=== PATIENT | female | born 1960 | race Caucasian/White ===

== ENCOUNTER → 2016-05-06 | Outpatient (CLI) | payer BC ==
[~2016-05-06] MED LIST: NAPR-1169 PO; PHEN-582 PO
--- NOTE | 2016-05-06 17:09 | MAMMOGRAPHY REPORT ---
BILATERAL DIGITAL SCREENING MAMMOGRAM TOMOSYNTHESIS WITH CAD: 05/06/2016 CLINICAL HISTORY: Baseline examination. TECHNIQUE: Breast tomosynthesis in addition to standard 2D mammography was performed. Current study was also evaluated with a Computer Aided Detection (CAD) system. COMPARISON: No prior exams were available for comparison. BREAST COMPOSITION: There are scattered areas of fibroglandular density in both breasts. FINDINGS: There is a 2.5 cm focal asymmetry seen within the left lower inner quadrant, with question able associated architectural distortion on the tomosynthesis images. Given no priors to document s tability, recommend spot compression tomosynthesis views and possible breast ultrasound for further evaluation. The remainder of both breasts are negative, without suspicious masses, calcifications, or areas of a rchitectural distortion noted. IMPRESSION: ACR BI-RADS CATEGORY 0: INCOMPLETE EVALUATION: NEED ADDITIONAL IMAGING EVALUATION Left breast focal asymmetry, for which additional imaging evaluation is recommended. The patient wi ll be called to schedule an appointment. Approximately 10% of breast cancers are not detected with mammography. A negative mammographic repor t should not delay biopsy if a clinically suggestive mass is present. Anabell Ornelas M.D. /:05/06/2016 16:06:19 Steamer Operator: Courtney BUTLER)([place]), [facility] letter sent: Addl Imaging 0 BI-RADS Code: ACR BI-RADS Category 0: Incomplete Evaluation: Need Additional Imaging Evaluation
== END | disposition home or self-care (01) ==
LOC: C.MAMM 08:59
PROVIDERS: ATTEND Obstetrics & Gynecology
DX: Z12.31 Encounter for screening mammogram for malignant neoplasm of breast (principal); N64.89 Other specified disorders of breast

== ENCOUNTER → 2016-05-13 | Outpatient (CLI) | payer BC ==
--- NOTE | 2016-05-13 12:46 | MAMMOGRAPHY REPORT ---
ULTRASOUND OF LEFT BREAST: 05/13/2016 CLINICAL HISTORY: 56-year-old woman called back from screening mammography for a 2.7 cm focal asymme try in the lower inner quadrant of the left breast. Patient has no prior available mammograms. COMPARISON: Screening mammogram performed 05/06/2016. FINDINGS: Real-time high-resolution sonographic evaluation was performed throughout the lower inner quadrant of the left breast. In the 8:00 axis, 4 cm from the nipple, there is a focal area of dilat ed ducts filled with anechoic fluid. There is dense echogenic tissue surrounding this abnormal vivar le of ducts. This lesion measures approximately 23.5 x 11.4 x 18.6 mm and correlates well with the focal mammographic asymmetry. This is indeterminate and definitive characterization with ultrasound guided vacuum assisted core biopsy is recommended to exclude the possibility of an infiltrating pro cess, given that dilated ducts are only seen focally in this one location. IMPRESSION: ACR BI-RADS CATEGORY 4B: INTERMEDIATE SUSPICION FOR MALIGNANCY - FOLLOW-UP RECOMMENDED 1. Ultrasound guided vacuum assisted core needle biopsy is recommended for a 2.4 cm island of dense tissue surrounding focally dilated tangle of milk ducts in the 8:00 left breast, 4 cm from the nipp le, which correlates with the focal mammographic asymmetry. These results and recommendations were discussed with the patient at the time of the exam. She tent atively scheduled the biopsy prior to leaving our department. Gaye Musa M.D. ay/:05/13/2016 10:08:06 Latin Professor: Dr. Gaye Musa, [facility] letter sent: Abnormal 4/5 BI-RADS Code: ACR BI-RADS Category 4B: Intermediate Suspicion For Malignancy
== END | disposition home or self-care (01) ==
LOC: C.MAMM 08:54
PROVIDERS: ATTEND Obstetrics & Gynecology
DX: R92.8 Other abnormal and inconclusive findings on diagnostic imaging of breast (principal)

== ENCOUNTER → 2016-05-21 | Outpatient (CLI) | payer BC ==
--- NOTE | 2016-05-21 14:24 | Discharge Instructions ---
Discharge Instructions Procedure Procedure Date: May 21, 2016. Reason for visit: Left breast asymmetry Discharge Discharge Date: May 21, 2016. Discharge Diagnosis: post left breast ultrasound guided core biopsy Instructions Activity Recommendations: Additional Limitations (see below) Return to School/Work: no limitations Recommended Home Diet: No Limitations Provider Instructions: ACTIVITY RECOMMENDATIONS: * No lifting, pushing, pulling or exercising the affected side for three days. RETURN TO SCHOOL/WORK: * You may return to work/school after the procedure, but do not perform any strenuous activities for 24 to 48 hours. MEDICATIONS: * Tylenol (two 325 mg) every four to six hours if needed for mild pain (if not allergic to Tylenol). DIET: * Resume previous diet. SPECIAL CARE INSTRUCTIONS: * Keep biopsy site dry for 24 hours. May shower after 24 hours, but do not soak (bathe) incision. * May remove Tegaderm (plastic patch) tomorrow AFTER showering. * Leave the steri-strips on for one week. Allow the steri-strips to fall off by themselves. If not off after one week, you may remove them. You may place a Bandaid crosswise over the strips, if desired. * Apply ice 10 minutes on and 10 minutes off as needed. * Wear a bra at bedtime to sleep more comfortably for 2-3 days. * Your referring physician should have the results after approximately 5 to 7 business days. * Call for unusual bleeding, fever, drainage, etc or if you have any questions call [phone] during normal business hours or after hours call Dr Musa, . FOLLOW UP VISIT: Follow-up with Referring Physician as scheduled. Allergies Coded Allergies: Penicillins (Verified Allergy, Unknown, hives, 02/10/15) Wilfred Cornejo Recommendations: Call your doctor if: * Temperature above 101 degrees * Pain not relieved by pain medicine ordered * There is increased drainage or redness from any incision * You have any unanswered questions or concerns. Your Doctors Instructions noted above were prepared by provider Gaye Musa. Patient Signature Section: Patient Instructions Signature Page Courtney Justin Patient (or Guardian) Signature/Date: I have read and understand the instructions given to me by my caregivers. Caregiver/RN/Doctor Signature/Date: The above-named patient and/or guardian has received patient instructions on this date. + Original Patient Signature Page (only) stays with chart. Please make copy for patient.
--- NOTE | 2016-05-21 15:32 | MAMMOGRAPHY REPORT ---
UNILATERAL LEFT DIGITAL DIAGNOSTIC MAMMOGRAM TOMOSYNTHESIS: 05/21/2016 CLINICAL HISTORY: Status post left breast ultrasound guided vacuum assisted core biopsy of a focal a symmetry with possible associated distortion in the 8:00 middle one third of the breast. Please refer to the report from left breast ultrasound guided core biopsy performed at the same time for full detail. IMPRESSION: POST PROCEDURE IMAGING FOR MARKER PLACEMENT Please refer to the report from left breast ultrasound guided core biopsy performed at the same time for full detail. Approximately 10% of breast cancers are not detected with mammography. A negative mammographic repor t should not delay biopsy if a clinically suggestive mass is present. Gaye Musa M.D. ay/:05/21/2016 14:29:28 Publicity Person: Paola Samuel, [facility] BI-RADS Code: Post Procedure Imaging For Marker Placement
--- NOTE | 2016-05-21 16:42 | MAMMOGRAPHY REPORT ---
THIS REPORT HAS BEEN AMENDED. ULTRASOUND GUIDED BIOPSY LEFT BREAST: 05/21/2016 CLINICAL HISTORY: Focal asymmetry in the lower inner middle one third of the left breast. Patient p resents for ultrasound-guided core biopsy. COMPARISON: Comparison is made to exams dated: 05/13/2016 ultrasound and 05/06/2016 mammogram - [facility]. PATIENT CONSENT: The procedure, risks and benefits were discussed with the patient and informed writ ten consent was obtained. Specific risks to this procedure include: bleeding, infection, puncture of adjacent structure, nontarget biopsy, sampling error, metal allergy and medication reaction. PROCEDURE DESCRIPTION: A time out was performed and the left breast was agreed as the site of biopsy . The skin was prepped and draped in the usual sterile fashion. The dense glandular tissue with inte rspersed tangled hypoechoic ducts in the 8:00 left breast was identified and chosen as the target fo r biopsy. Subcutaneous and intraparenchymal 1% buffered lidocaine, with and without epinephrine, was administered as local anesthesia. A skin incision was made. Through the incision, 4 samples were t aken with a 12 gauge Celero biopsy device. A metallic marker was placed at the biopsy site. Hemostas is was achieved after manual compression. The patient tolerated the procedure well and there was no immediate complication. The samples were sent to the pathology department in an appropriately label ed container. Postprocedure left CC and ML tomosynthesis images and 2-D digital images were obtained. There is a new ribbon-shaped metallic biopsy marker and no significant hematoma within the focal asymmetry in q uestion. Air bubbles from the procedure are also seen within the asymmetry on the CC view. No sign ificant postbiopsy hematoma is identified. This confirms mammographicsonographic correlation. IMPRESSION: ULTRASOUND GUIDED BIOPSY Status post ultrasound-guided core biopsy of a focal asymmetry in the 8:00 left breast, with metalli c biopsy marker placed at the site. The patient will receive notification of the biopsy results from her referring physician. Gaye Musa M.D. ay/:05/21/2016 15:55:44 Ingredient Specialist: Paola Samuel, [facility] AMENDMENT: 06/03/2016 Gaye Musa M.D. Pathology results from the ultrasound-guided core biopsy of a focal asymmetry in the lower inner ifeanyi drant of the left breast yielded fibrocystic change with apocrine metaplasia, focal adenosis, and a papillary proliferation consistent with a papilloma. Carcinoma is not seen. It is unlikely that th e palpable identified at pathology can account for the asymmetry which measures approximately 2.5 cm mammographically. Nevertheless, given the pathologic finding of a papilloma, recommend surgical co nsultation for consideration of surgical excision. Pending decision for surgical excision, a short interval follow-up left mammogram including tomosynthesis images and possible repeat ultrasound is r ecommended to ensure stability in 6 months.
== END | disposition home or self-care (01) ==
LOC: C.MAMM 13:38
PROVIDERS: ATTEND Obstetrics & Gynecology
DX: N60.12 Diffuse cystic mastopathy of left breast (principal); N60.22 Fibroadenosis of left breast

== ENCOUNTER → 2016-07-16 | Outpatient (CLI) | payer BC ==
--- NOTE | 2016-07-16 16:04 | DIAGNOSTIC IMAGING REPORT ---
LEFT FOOT MIN 3 VIEWS ROUTINE CLINICAL HISTORY: Left foot pain COMPARISON: None. DISCUSSION: No acute fractures are visualized. There is mild spurring at the base of the fifth metatarsal. There are mild osteoarthritic changes the level of the first metatarsal phalangeal joint. There are no erosive changes. There are small calcaneal spurs. IMPRESSION: Minor degenerative change. No fractures identified. No evidence of erosive disease. Electronically signed by: Jay Collazo M.D. 07/16/2016 4:02 PM Dictated Date/Time: 07/16/2016 4:01 PM
== END | disposition home or self-care (01) ==
LOC: C.RAD1850 15:53
PROVIDERS: ATTEND Family Medicine
DX: M79.673 Pain in unspecified foot (principal)

== ENCOUNTER → 2016-08-25 | Outpatient (CLI) | payer BC ==
--- NOTE | 2016-08-25 12:02 | DIAGNOSTIC IMAGING REPORT ---
LEFT FOOT 3 VIEWS HISTORY: LEFT FOOT PAIN COMPARISON: Left foot 07/16/2016. FINDINGS: There is no fracture or dislocation. Mild soft tissue swelling within the first toe. No radiopaque foreign bodies. Mild degenerative changes are again noted. The Lisfranc joint is intact. No erosions identified. Small plantar and posterior calcaneal spurs. IMPRESSION: No fractures. Mild degenerative changes are again noted. Mild soft tissue swelling within the first toe persist. Electronically signed by: Josias Cook M.D. 08/25/2016 12:01 PM Dictated Date/Time: 08/25/2016 11:59 AM
== END | disposition home or self-care (01) ==
LOC: C.RDSM 11:31
PROVIDERS: ATTEND Family Medicine
DX: M79.672 Pain in left foot (principal); M54.5 Low back pain

== ENCOUNTER 2023-08-21 07:29 | Inpatient (IN) ==
--- NOTE | 2023-08-21 07:54 | Emergency Department Note ---
Impression & Plan Chest pain, Hypertension, ST elevation (STEMI) myocardial infarction ED Provider Note ED Provider Note NAME: GIUSEPPE BYRD AGE:63 SEX: Female : 1960 ARRIVES VIA: Private vehicle INFORMANT: Patient ED PROVIDER(s): Mariah Gonsales DO CHIEF COMPLAINT: Chest pain HPI: This is a 63-year-old female who presents emerged from due to concern for worsening episodes of chest pain since Wednesday. She states pain seem mostly with laying down and she thought initially it was reflux. She states she would try some Maalox which seemed to help some and provide temporary relief however pain always returned. She states pain also comes and goes throughout the day as well, although was not specifically tied to exertion. She states she does have a history of high blood pressure and had talked with her doctor recently about increasing her meds. She thought perhaps it was due to increased stress as she recently retired and got . She denies any recent fevers, chills, or URI symptoms. She states she does have a history of reflux although it is never been this bad. She does not take a daily PPI or H2 paxton. She states pain when it comes is central, she occasionally also feels it into the right shoulder and into the left lateral chest. No further radiation into the back, neck, or upper extremities. She states she does have accompanying nausea and fatigue, no overt dizziness or shortness of breath. PAST MEDICAL HISTORY:See Below PAST SURGICAL HISTORY:See Below FAMILY HISTORY:See Below SOCIAL HISTORY:See Below HOME MEDICATIONS:See Below ALLERGIES:See Below VITALS:See Below PHYSICAL EXAMINATION: GENERAL: alert, well appearing, well nourished, no distress, non-toxic EYE EXAM: normal conjunctiva, PERRL and EOM's grossly intact OROPHARYNX: no exudate, no erythema, lips, buccal mucosa, and tongue normal and mucous membranes are moist NECK: supple, no nuchal rigidity, no adenopathy, non-tender LUNGS: Clear to auscultation. Normal chest wall mechanics, no w/r/r HEART: no murmurs, S1 normal and S2 normal ABDOMEN: abdomen soft, non-tender, normo-active bowel sounds, no masses, no rebound or guarding. SKIN: no rashes, petechiae, orbruising UPPER EXTREMITIES: upper extremities are grossly normal. FROM, nml pulses b/l. LOWER EXTREMITIES: No pitting edema. FROM, nml pulses b/l. NEURO EXAM: Normal sensorium, cranial nerves II-XII grossly intact, normal speech, no facial droop,nogross weakness of arms, no gross weakness of legs. Gross sensation intact. No ataxia. Vital Signs: reviewed and remarkable Differential Diagnosis: acute coronary syndrome, pericarditis, pulmonary embolus, aortic dissection, pneumonia, pneumothorax, musculoskeletal pain, shingles, GERD, GI bleed, as well as others were considered MEDICAL DECISION MAKING: This is a 63 yo female who presents to the ER with concern for several days of intermittent chest pain. VS stable and patient afebrile. Labs drawn and sent, IV established, EKG and CXR performed and interpreted at bedside, and patient placed on telemetry. No pain during my initial exam. She was noted to be hypertensive and did not take her htn meds this am. She was given IV labetolol. She had recurrent pain and repeat EKG performed. Patient noted to have biphasic T waves and T wave inversions. In comparison to prior EKGs this was new. Labs revealed elevated troponin. I asked for message to be sent to admitting hospitalist team and [place] [facility]. Patient with recurrent episode and 3rd EKG showed ST elevation. Heart Alert activated. Aspirin and heparin ordered. Case discussed with Dr. Galeana. Case then discussion with hospitalist and general cards additionally. Brilinta added. Morphine and zofran added additionally. Dr. Galeana came to bedside. VS remained stable. Consultation(s): 0840: Discussed with Dr. Chong, [facility] hospitalist team, for additional evaluation and management. 0841: Discussed with Dr. Galeana, interventional cardiology. 0846: Discussed with Dr. Mcdowell, cardiology. ER Treatment Provided: See below 0840: Based on changes now evident on third EKG, heart alert called. Diagnostics Interpreted By Me: -ECG: Normal sinus at 96, normal axis, normal intervals, appearance of biphasic T waves noted in V2 and V3 with inverted T waves noted V4 through V6,, inferior T waves appear flattened and slightly inverted also; compared to EKG from 2019; EKG #2 unchanged, EKG #[address] elevation noted anteriorly -Cardiac Monitoring: An order was placed for continuous cardiac monitoring. The monitor shows a rate of 97 with normal sinus rhythm. -Laboratory studies: As stated above and show below. -Imaging studies: X-ray Chest: A single view study of the chest was reviewed and was negative for cardiomegaly, focal infiltrate, effusion, pulmonary edema, or wide mediastinum. Triage Nursing Note Reviewed Prior/Outside Records Reviewed Critical Care: Critical care of 44 min performed to assess and manage high likelihood of life- threatening ACS, involving labs and imaging performed with assessment to evaluate chest pain diagnosis with frequent reassessment. This time includes bedside time, treatment discussions with patient/family/consultants, documentation time and excludes procedure time. Past Med/Surg History Medical History (Updated 08/21/23 @ 11:50 by Josias Dinh PA-C) History of high blood pressure RECENTLY BEEN GOOD, SOMETIMES MELOXICAM WILL DRIVE IT UP PER PT Rapid heart beat METOPROLOL FOR Migraines Arthritis Surgical History History of breast surgery LEFT/HAD BLOCKAGE IN DUCT - MARKER PRESENT H/O dilation and curettage S/P tubal ligation HX S/P tonsillectomy HX S/P laparoscopic procedure HX sling operation for stress incontinence Family History Mother Alzheimer disease Father Parkinson disease Social History Smoking Status: Never smoker Second Hand Exposure: No; Do You Dip or Chew Tobacco: No; Hx Alcohol Use: No Hx Substance Use: No Preferred Language: Uzbek Communication Ability: Effective Rail 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 Beliefs That Will Affect Care: None Current Living Situation: Spouse Other Information That Helps Us Care for You: No Feels Safe at Home: Yes Safety Concerns: Feels Safe At This Time Assistive Devices: Glasses Allergies Allergies Allergy/AdvReac Type Severity Reaction Status Date / Time naproxen Allergy Unknown Hives Verified 01/08/23 10:31 Penicillins Allergy Unknown hives Verified 01/08/23 10:31 sulindac [From Clinoril] Allergy Unknown Hives Verified 01/08/23 10:31 Home Meds Home Medications Medication Instructions Recorded Confirmed diclofenac sodium 1 % topical gel 2 g topical UD PRN Pain 07/11/20 08/21/23 metoprolol succinate 25 mg 25 mg PO QAM 07/11/20 08/21/23 tablet,extended release 24 hr meloxicam 15 mg tablet 15 mg PO DAILY 01/08/23 08/21/23 valsartan 80 mg tablet 160 mg PO DAILY 01/08/23 08/21/23 Previous Rx's Medication Instructions Recorded tramadol 50 mg tablet 50 - 100 mg (1 - 2 x 50 mg) PO Q6H 07/18/22 PRN pain #15 tabs Results & Data (ED) Vital Signs Vital Signs - 24 hr 08/21/23 07:29 08/21/23 07:29 08/21/23 07:31 Temperature 36.6 C Temperature Source Temporal Artery Scan Pulse Rate 95 H Pulse Rate [Apical] 89 Respiratory Rate 18 20 Respiratory Effort / Characteristics Non-Labored Respiratory Depth Normal Blood Pressure 191/121 H Blood Pressure [Left Arm] 179/114 H Blood Pressure Mean 144 Blood Pressure Mean [Left Arm] 135 Pulse Oximetry 98 96 Oxygen Delivery Method Room Air Room Air Room Air Sepsis Recent Fever Within 48 Hours No Sepsis New/Unexplained Change in Mental Status No Sepsis Action Taken by Nursing No Action Required 08/21/23 08:06 08/21/23 08:10 08/21/23 08:22 Temperature Temperature Source Pulse Rate 84 85 Pulse Rate [Apical] 78 Respiratory Rate 18 Respiratory Effort / Characteristics Respiratory Depth Blood Pressure 162/108 H Blood Pressure [Left Arm] 159/109 H Blood Pressure Mean Blood Pressure Mean [Left Arm] 125 Pulse Oximetry 96 Oxygen Delivery Method Sepsis Recent Fever Within 48 Hours Sepsis New/Unexplained Change in Mental Status Sepsis Action Taken by Nursing 08/21/23 08:27 Temperature Temperature Source Pulse Rate 92 H Pulse Rate [Apical] Respiratory Rate Respiratory Effort / Characteristics Respiratory Depth Blood Pressure 159/109 H Blood Pressure [Left Arm] Blood Pressure Mean Blood Pressure Mean [Left Arm] Pulse Oximetry Oxygen Delivery Method Sepsis Recent Fever Within 48 Hours Sepsis New/Unexplained Change in Mental Status Sepsis Action Taken by Nursing Laboratory Data 08/21/23 07:44 08/21/23 07:44 Lab Results 08/21/23 Range/Units 07:44 WBC 7.63 (4.8-10.8) K/ul RBC 5.50 H (4.20-5.40) M/uL Hgb 16.5 H (12.0-16.0) g/dl Hct 49.5 H (37.0-47.0) % MCV 90.0 (80.0-100.0) fL MCH 30.0 (25.0-34.0) pg MCHC 33.3 (32.0-36.0) g/dL RDW Std Deviation 42.1 (36.4-46.3) fL RDW Coeff of Rossy 12.8 (11.5-14.5) % Plt Count 241 (130-400) K/uL MPV 9.9 (9.4-12.4) fL Immature Gran % (Auto) 0.3 % Neut % (Auto) 69.5 % Lymph % (Auto) 21.4 % Jerauld % (Auto) 6.6 % Eos % (Auto) 1.7 % Baso % (Auto) 0.5 % Neut # (Auto) 5.31 (1.40-6.50) K/uL Lymph # (Auto) 1.63 (1.20-3.40) K/uL Jerauld # (Auto) 0.50 (0.11-0.59) K/uL Eos # (Auto) 0.13 (0.00-0.50) K/uL Baso # (Auto) 0.04 (0.00-0.20) K/uL Immature Gran # (Auto) 0.02 (0.01-0.20) K/uL PT 10.4 (9.0-12.0) Seconds INR 1.0 (0.9-1.1) Sodium 140 (136-145) mmol/L Potassium 3.9 (3.5-5.1) mmol/L Chloride 104 (98-107) mmol/L Carbon Dioxide 27 (21-32) mmol/L Anion Gap 9 (3-11) BUN 23 (6-23) mg/dl Creatinine 0.77 (0.6-1.2) mg/dl Est Cr Clr Drug Dosing 84.5 ml/min Est GFR ( Amer) 93.9 ml/min Est GFR (Non-Af Amer) 81.0 ml/min BUN/Creatinine Ratio 29.9 H (10-20) Glucose 120 H (70-99(Fasting)) mg/dl Calcium 9.4 (8.6-10.3) mg/dl Magnesium 2.1 (1.7-2.4) mg/dl Total Bilirubin 0.7 (0.2-1.0) mg/dl AST 14 (13-39) U/L ALT 16 (7-52) U/L Alkaline Phosphatase 79 (34-104) U/L Troponin I High Sens 170.2 H* (0-14) pg/ml B-Natriuretic Peptide 213 H (0-100) pg/ml Total Protein 7.2 (6.0-8.3) gm/dl Albumin 4.2 (3.4-5.0) gm/dl Globulin 3.0 (2.5-4.0) gm/dl Albumin/Globulin Ratio 1.4 (0.9-2) Lipase 13 (11-82) U/L TSH 5.388 H (0.300-4.500) uIu/ml Free T4 0.77 (0.61-1.60) ng/dl Administered Medications Metoprolol Tartrate (Metoprolol Tartrate 25 Mg Tab) 12.5 mg PO BID JAC Stop: 09/20/23 10:14 Last Admin: 08/21/23 13:45 Dose: 12.5 mg Documented By: TRUDY Discontinued Medications Aspirin (Aspirin Chew 324 Mg) Confirm Administered Dose 324 mg .ROUTE .STK-MED ONE Stop: 08/21/23 08:40 Last Admin: 08/21/23 08:41 Dose: 324 mg Documented By: LASHAY Aspirin (Aspirin 81 Mg Chew) 324 mg PO NOW STA Stop: 08/21/23 08:41 Last Admin: 08/21/23 08:45 Dose: 324 mg Documented By: LASHAY Fentanyl Citrate (Fentanyl Citrate Pf 100 Mcg/2 Ml Vial) Confirm Administered Dose 100 mcg .ROUTE .STK-MED ONE Stop: 08/21/23 09:03 Last Increment: 08/21/23 09:42 Dose: 25 mcg Documented By: SHO Heparin Sodium (Porcine) (Heparin Sod (Porcine) 1000 Unit/Ml) Confirm Administered Dose 1,000 units .ROUTE .STK-MED ONE Stop: 08/21/23 08:41 Last Admin: 08/21/23 08:46 Dose: Not Given Documented By: LASHAY Heparin Sodium (Porcine) (Heparin Sod (Porcine) 1000 Unit/Ml) 5,000 units IV NOW ONE Stop: 08/21/23 08:41 Last Admin: 08/21/23 08:42 Dose: 5,000 units Documented By: LASHAY Co-signed By: TRUONG Heparin Sodium (Porcine) (Heparin (Porcine) 1000 Unit/Ml 10 Ml (Plate Finisher Use Only)) Confirm Administered Dose 10,000 units .ROUTE .ST-MED ONE Stop: 08/21/23 09:03 Last Admin: 08/21/23 09:42 Dose: 5,000 units Documented By: SHO Heparin Sodium/Sodium Chloride (Heparin In Nss Infusion 1000 Unit/500 Ml (2 U/Ml) Bag) Confirm Administered Dose 3,000 units IV .ST-MED ONE Stop: 08/21/23 09:03 Last Admin: 08/21/23 10:51 Dose: Not Given Documented By: TRUDY Pantoprazole Sodium 40 mg/ (Syringe) 10 mls @ 5 mls/min IV NOW ONE Stop: 08/21/23 07:50 Last Admin: 08/21/23 08:07 Dose: 5 mls/min Documented By: LASHAY Sodium Chloride (Nss) 500 mls @ 125 mls/hr IV .Q4H JAC Stop: 09/20/23 07:59 Last Infusion: 08/21/23 15:36 Dose: Infused Documented By: Admin: 08/21/23 13:45 Dose: 125 mls/hr Documented By: Infusion: 08/21/23 12:24 Dose: Infused Documented By: Admin: 08/21/23 08:07 Dose: 125 mls/hr Documented By: LASHAY Ioversol (Optiray 350) Confirm Administered Dose 1 ml .ROUTE .ST-MED ONE Stop: 08/21/23 09:03 Last Admin: 08/21/23 09:44 Dose: 80 ml Documented By: DARCIE Labetalol HCl (Labetalol Hcl Iv 5 Mg/Ml 20ml) 5 mg IV NOW STA Stop: 08/21/23 07:59 Last Admin: 08/21/23 08:06 Dose: 5 mg Documented By: LASHAY Co-signed By: TRUONG Midazolam HCl (Midazolam Hcl 1 Mg/Ml 2ml Vial) Confirm Administered Dose 2 mg .ROUTE .ST-MED ONE Stop: 08/21/23 09:03 Last Increment: 08/21/23 09:43 Dose: 1 mg Documented By: SHO Morphine Sulfate (Morphine Sulfate 2 Mg/Ml Carp) 2 mg IV NOW STA Stop: 08/21/23 08:44 Last Admin: 08/21/23 08:47 Dose: 2 mg Documented By: LASHAY Nicardipine HCl (Nicardipine Hcl Inj 2.5 Mg/Ml 10 Ml Amp) Confirm Administered Dose 25 mg .ROUTE .[facility] ONE Stop: 08/21/23 09:03 Last Admin: 08/21/23 09:43 Dose: 25 mg Documented By: DARCIE Nitroglycerin/Dextrose (Nitroglycerin/D5w 100mcg/Ml 20ml Syr) Confirm Administered Dose 2,000 mcg .ROUTE .[facility] ONE Stop: 08/21/23 09:03 Last Admin: 08/21/23 09:44 Dose: 2,000 mcg Documented By: [id number] Ondansetron HCl (Ondansetron Inj 2 Mg/Ml 2 Ml Vial) 4 mg IV NOW STA Stop: 08/21/23 08:50 Last Admin: 08/21/23 08:51 Dose: 4 mg Documented By: LASHAY Ondansetron HCl (Ondansetron Inj 2 Mg/Ml 2 Ml Vial) Confirm Administered Dose 4 mg .ROUTE .[facility] ONE Stop: 08/21/23 08:52 Last Admin: 08/21/23 08:52 Dose: Not Given Documented By: LASHAY Pantoprazole Sodium (Pantoprazole 40 Mg Tab) 40 mg PO NOW STA Stop: 08/21/23 10:15 Last Admin: 08/21/23 13:45 Dose: 40 mg Documented By: TRUDY Ticagrelor (Ticagrelor 90 Mg Tab) 180 mg PO ONE ONE Stop: 08/21/23 08:44 Last Admin: 08/21/23 08:46 Dose: 180 mg Documented By: LASHAY Imaging Data Radiologist's Impression: Chest X-Ray 08/21/23 07:48 XR chest 1V portable CLINICAL HISTORY: cp TECHNIQUE: Single frontal radiograph of the chest was obtained. Comparison: Comparison is made to chest radiograph 06/02/2015 FINDINGS: No lines and tubes are seen. The cardiomediastinal silhouette is normal. The lungs are clear. No evidence of pleural effusion or pneumothorax. IMPRESSION: No acute chest disease. ACT 112: Negative or not required by law. Electronically signed by: Chong Eagle M.D. 08/21/2023 8:08 AM Discharge Plan Visit Data Chief Complaint: Cardiac Assessment Stated Complaint: ACID REFLUX,CHEST HEAVY ED Provider: Mariah Gonsales Discharge Problem: Chest pain, Hypertension, ST elevation (STEMI) myocardial infarction Patient Disposition: Admitted As Inpatient Discharge Instructions Interventions: ED Discharge Assessment Last Done: 08/21/23 09:13
[2023-08-21] MEDS: LABETALOL HCL IV 5 MG/ML 20ML IV STA (08:06)
[2023-08-21] MEDS: PANTOprazole 40 MG in SYRINGE 0 ML IV ONE (08:07)
[2023-08-21] MEDS: SODIUM CHLORIDE 0.9% 500 ML IV SCH (08:07)
--- NOTE | 2023-08-21 08:09 | XRay Report ---
XR chest 1V portable CLINICAL HISTORY: cp TECHNIQUE: Single frontal radiograph of the chest was obtained. Comparison: Comparison is made to chest radiograph 06/02/2015 FINDINGS: No lines and tubes are seen. The cardiomediastinal silhouette is normal. The lungs are clear. No evid ence of pleural effusion or pneumothorax. IMPRESSION: No acute chest disease. ACT 112: Negative or not required by law. Electronically signed by: Chong Eagle M.D. 08/21/2023 8:08 AM
[2023-08-21 08:12] LABS: Albumin Globulin Ratio 1.4 (0.9-2); Albumin Level 4.2 gm/dl (3.4-5.0); BUN Creatinine Ratio 29.9 (10-20); Bilirubin,Total 0.7 mg/dl (0.2-1.0); Calcium 9.4 mg/dl (8.6-10.3); Creatinine Clr Calc Pharmacy 84.5 ml/min; Est GFR (African American) 93.9 ml/min; Magnesium 2.1 mg/dl (1.7-2.4); Potassium 3.9 mmol/L (3.5-5.1); Total Protein 7.2 gm/dl (6.0-8.3)
[2023-08-21 08:13] LABS: Basophils # (auto) 0.04 K/uL (0.00-0.20); Basophils % (auto) 0.5 %; Eosinophils # (auto) 0.13 K/uL (0.00-0.50); Eosinophils % (auto) 1.7 %; Hematocrit (blood only) 49.5 % (37.0-47.0); Hemoglobin 16.5 g/dl (12.0-16.0); Immature Granulocytes # (auto) 0.02 K/uL (0.01-0.20); Immature Granulocytes % (auto) 0.3 %; Lymphocytes # (auto) 1.63 K/uL (1.20-3.40); Lymphocytes % (auto) 21.4 %; Mean Corpuscular Hgb Conc 33.3 g/dL (32.0-36.0); Mean Platelet Volume 9.9 fL (9.4-12.4); Monocytes % (auto) 6.6 %; Neutrophils # (auto) 5.31 K/uL (1.40-6.50); Neutrophils % (auto) 69.5 %; Platelet Count 241 K/uL (130-400); RDW Coefficient of Variation 12.8 % (11.5-14.5); RDW Standard Deviation 42.1 fL (36.4-46.3); White Blood Count 7.63 K/ul (4.8-10.8)
[2023-08-21 08:18] LABS: Prothrombin Time 10.4 Seconds (9.0-12.0)
[2023-08-21 08:23] LABS: Troponin I High Sensitivity 170.2 pg/ml (0-14)
[2023-08-21 08:28] LABS: Thyroid Stimulating Hormone 5.388 uIu/ml (0.300-4.500)
[2023-08-21] MEDS: ASPIRIN CHEW 324 MG ONE (08:41)
[2023-08-21] MEDS: HEPARIN SOD (PORCINE) 1000 UNIT/ML IV ONE (08:42)
[2023-08-21] MEDS: ASPIRIN 81 MG CHEW PO STA (08:45)
[2023-08-21] MEDS: HEPARIN SOD (PORCINE) 1000 UNIT/ML ONE (08:46)
[2023-08-21] MEDS: TICAGRELOR 90 MG TAB PO ONE (08:46)
[2023-08-21] MEDS: MoRPHine SULFATE 2 MG/ML CARP IV STA (08:47)
[2023-08-21] MEDS: ONDANSETRON INJ 2 MG/ML 2 ML VIAL IV STA (08:51)
[2023-08-21] MEDS: ONDANSETRON INJ 2 MG/ML 2 ML VIAL ONE (08:52)
--- NOTE | 2023-08-21 09:02 | Pre Anesthesia Assessment ---
Date of Service August 21, 2023 Pre Sedation Assessment Vital Signs Temp Pulse Pulse Resp BP BP Pulse Ox 08/21/23 08:27 92 H 159/109 H 08/21/23 08:22 78 18 159/109 H 96 08/21/23 08:10 85 08/21/23 08:06 84 162/108 H 08/21/23 07:31 97.9 F 95 H 20 191/121 H 96 08/21/23 07:29 89 18 179/114 H 98 08/21/23 07:29 O2 Del Method 08/21/23 08:27 08/21/23 08:22 08/21/23 08:10 08/21/23 08:06 08/21/23 07:31 Room Air 08/21/23 07:29 Room Air 08/21/23 07:29 Room Air Cardiovascular + regular rate Respiratory + respiratory effort normal Pre-Sedation Airway Assessment Smoking Status: Never smoker Hx Sleep Apnea: No Hx Difficult Intubation: No Short, Thick Neck: No Thyromental Distance: < 3.5 Finger Breadths Oral Cavity: + WNL Mallampati Class: III ASA: ASA3 Procedure Planning Contraindications for Sedation: none Current Medications Reviewed: Yes Notes The planned sedation has been discussed with the patient. Informed Consent was obtained. I have identified the patient, determined the appropriateness of sedation and have assessed the patient immediately prior to the procedure. All medicine(s) and interventions are by my order.
[2023-08-21 09:03] LABS: T4 Free Thyroxine 0.77 ng/dl (0.61-1.60)
--- NOTE | 2023-08-21 09:10 | Cardiology Consultation ---
Date of Consultation August 21, 2023 Assessment & Plan (1) ST elevation (STEMI) myocardial infarction: Presentation consistent with anterior STEMI and recommend proceeding with emergent cardiac catheterization and likely primary PCI. No apparent contraindications to procedure. Discussed risks, benefits, alternatives of procedure with patient and they are willing to proceed. Given IV heparin and ticagrelor 180 mg in the ED. Further recommendations pending findings of coronary angiography. History of Present Illness History of Present Illness Mrs. Soto is a very pleasant 63-year-old woman here with acute chest pain and ECG concerning for acute TX. Patient seen emergently in the ED after heart alert activated after serial ECGs showed new evolving anterior ST elevations (most notable ECG 8:38). Past cardiac history remarkable for hypertension and palpitations thought secondary to SVT. Followed by Dr. Laboy for cardiac care. Has been having stuttering chest pain for last 3 days, thought initially reflux. Episodes worse this morning, prolonged and associated with nausea. No prior similar symptoms in the past. In ED hypertensive with stuttering pain. HsTrop 170. Received labetalol, heparin, Ticagrelor. Family history: No premature CAD Social History: Non-smoker. Retired. Previously worked at [employer] in [employer]. . Allergies Allergy/AdvReac Type Severity Reaction Status Date / Time naproxen Allergy Unknown Hives Verified 01/08/23 10:31 Penicillins Allergy Unknown hives Verified 01/08/23 10:31 sulindac [From Clinoril] Allergy Unknown Hives Verified 01/08/23 10:31 Home Medications Medication Instructions Recorded Confirmed Type diclofenac sodium 1 % topical gel 2 g topical UD PRN Pain 07/11/20 08/21/23 History metoprolol succinate 25 mg 25 mg PO QAM 07/11/20 08/21/23 History tablet,extended release 24 hr tramadol 50 mg tablet 50 - 100 mg (1 - 2 x 50 mg) PO Q6H 07/18/22 08/21/23 Rx PRN pain #15 tabs meloxicam 15 mg tablet 15 mg PO DAILY 01/08/23 08/21/23 History valsartan 80 mg tablet 160 mg PO DAILY 01/08/23 08/21/23 History Patient History Medical History History of high blood pressure RECENTLY BEEN GOOD, SOMETIMES MELOXICAM WILL DRIVE IT UP PER PT Rapid heart beat METOPROLOL FOR Migraines Arthritis Surgical History History of breast surgery LEFT/HAD BLOCKAGE IN DUCT - MARKER PRESENT H/O dilation and curettage S/P tubal ligation HX S/P tonsillectomy HX S/P laparoscopic procedure HX sling operation for stress incontinence Family History Mother Alzheimer disease Father Parkinson disease Social History Smoking Status: Never smoker Do You Dip or Chew Tobacco: No; Hx Alcohol Use: No Preferred Language: Albanian Communication Ability: Effective 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 Vascular: 2+ radial Abdomen: Soft, nontender Extremities: Well perfused, no peripheral edema Neuro: Nonfocal Psych: Alert orient x3, normal affect and mood Results & Data Vital Signs (Past 12 Hours) Vital Signs Temp Pulse Pulse Resp BP BP Pulse Ox 08/21/23 08:27 92 H 159/109 H 08/21/23 08:22 78 18 159/109 H 96 08/21/23 08:10 85 08/21/23 08:06 84 162/108 H 08/21/23 07:31 97.9 F 95 H 20 191/121 H 96 08/21/23 07:29 89 18 179/114 H 98 08/21/23 07:29 O2 Del Method 08/21/23 08:27 08/21/23 08:22 08/21/23 08:10 08/21/23 08:06 08/21/23 07:31 Room Air 08/21/23 07:29 Room Air 08/21/23 07:29 Room Air PG Care Time/CCT Total # of Minutes Spent Total Time Spent with Patient: Total time spent is greater than 50% in coordination of care (as documented) at patient's floor/unit and/or counseling patient: Coding Level of Care Code 62463 ER DEPT VISIT MOD LVL [address] elevation (STEMI) myocardial infarction I21.3
[2023-08-21] MEDS: fentaNYL citrate PF 100 MCG/2 ML VIAL ONE (09:42)
[2023-08-21] MEDS: HEPARIN (PORCINE) 1000 UNIT/ML 10 ML (CATH LAB USE ONLY) ONE (09:42)
[2023-08-21] MEDS: MIDAZOLAM HCL 1 MG/ML 2ML VIAL ONE (09:43)
[2023-08-21] MEDS: niCARdipine HCL INJ 2.5 MG/ML 10 ML AMP ONE (09:43)
[2023-08-21] MEDS: OPTIRAY 350 ONE (09:44)
[2023-08-21] MEDS: NITROGLYCERIN/D5W 100MCG/ML 20ML SYR ONE (09:44)
[2023-08-21] MEDS ORDERED: ONDANSETRON INJ 2 MG/ML 2 ML VIAL IV PRN (10:15)
[2023-08-21] MEDS ORDERED: ACETAMINOPHEN 325 MG TAB PO PRN (10:15)
--- NOTE | 2023-08-21 10:16 | History & Physical Report ---
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 CBC, BMP, A1c, fasting lipid panel (2) Hypertension: Plan: Metoprolol succinate 25 mg p.o. --> Metoprolol tartrate 12.5 mg p.o. BID Continue valsartan (3) NSAID sensitivity: Plan: Patient does note allergy to NSAIDs (hives and occasional rash; no history of anaphylaxis or throat closure) Not currently taking meloxicam Discussed importance of taking aspirin and Brilinta daily Will start on Protonix 40 mg p.o. daily for now (4) Chest pain: Plan Disposition: Admit to PCU telemetry Full code Heart healthy diet VTE PPx: Heparin IV History of Present Illness Chief Complaint: Cardiac assessment Primary Care Provider: Joaquinchristiano Akira Valdez is a 63-year-old female with PMH of HTN, rotator cuff tear, and osteoarthritis. She presented for worsening chest pain on the evening of 08/19. Patient reports she first began to develop intermittent chest pain at rest on Thursday 08/17. She initially thought this was indigestion. The chest pain then came to ahead on the evening of 08/19, where it became a burning substernal pain/pressure that would last for minutes at a time, and recur every 5 minutes. Associated symptoms included dizziness and 1 episode of diarrhea this morning. Patient did not take any additional pain medications at this time. The pain radiated to the right shoulder. No radiation to left shoulder or back. Patient could not sleep. She eventually took her regular morning medications metoprolol and losartan. It should be noted that certain medications such as NSAIDs/naproxen do cause her to develop a rash/hives. She does not follow with an document processor. No history of airway closure or anaphylaxis. Note: It was stressed that this time that aspirin and Brilinta would be important moving forward. Patient notes that she no longer takes meloxicam or Celebrex. In regard to family history, she notes that her father had coronary artery disease involving stents and triple bypass. No personal history of [place]. Patient denies smoking, tobacco use, and recent alcohol use. Patient does follow with Dr. Laboy for cardiology. On ED arrival, patient was taken emergently to the [facility], for cardiac catheterization with Dr. Mega Galeana. After the procedure, patient reports that she is chest pain-free. She rates it 0 out of 10. She is mildly hypertensive at 145/85 at time of admission; SpO2 96% on RA; vitals otherwise stable. ROS post-cath: Patient denies fever, chills, nightsweats, dizziness, lightheadedness, CAMPBELL, changes in vision, chest pain or pressure, chest palpitations, SOB, abdominal pain, N/V, blood in the urine/stool, burning with urination, or pain/swelling/numbness/tingling in arms or legs. Allergies Allergy/AdvReac Type Severity Reaction Status Date / Time naproxen Allergy Unknown Hives Verified 01/08/23 10:31 Penicillins Allergy Unknown hives Verified 01/08/23 10:31 sulindac [From [facility]] Allergy Unknown Hives Verified 01/08/23 10:31 Home Medications Medication Instructions Recorded Confirmed Type diclofenac sodium 1 % topical gel 2 g topical UD PRN Pain 07/11/20 08/21/23 History metoprolol succinate 25 mg 25 mg PO QAM 07/11/20 08/21/23 History tablet,extended release 24 hr tramadol 50 mg tablet 50 - 100 mg (1 - 2 x 50 mg) PO Q6H 07/18/22 08/21/23 Rx PRN pain #15 tabs meloxicam 15 mg tablet 15 mg PO DAILY 01/08/23 08/21/23 History valsartan 80 mg tablet 160 mg PO DAILY 01/08/23 08/21/23 History Past Med/Surg History Medical History (Updated 08/21/23 @ 11:50 by Josias Dinh PA-C) History of high blood pressure RECENTLY BEEN GOOD, SOMETIMES MELOXICAM WILL DRIVE IT UP PER PT Rapid heart beat METOPROLOL FOR Migraines Arthritis Surgical History History of breast surgery LEFT/HAD BLOCKAGE IN DUCT - MARKER PRESENT H/O dilation and curettage S/P tubal ligation HX S/P tonsillectomy HX S/P laparoscopic procedure HX sling operation for stress incontinence Family History Mother Alzheimer disease Father Parkinson disease Social History Smoking Status: Never smoker Second Hand Exposure: No; Do You Dip or Chew Tobacco: No; Hx Alcohol Use: No Hx Substance Use: No Preferred Language: Luxembourger Communication Ability: Effective Rn Emergency Room Required: No Beliefs That Will Affect Care: None Current Living Situation: Spouse Other Information That Helps Us Care for You: No Feels Safe at Home: Yes Safety Concerns: Feels Safe At This Time Assistive Devices: Glasses Review of Systems Review of Systems: See HPI above Physical Exam Physical Exam: General: no acute distress; pleasant affect; non-toxic appearing; well-nou rished; cooperative; SpO2 96% on RA HEENT: normocephalic, atraumatic; no scleral icterus; PERRLA; vision and hearing grossly intact Neck: supple; trachea midline Skin: warm, dry without signs of tenting; no cyanosis; no rashes, bruising, lesions, or erythema noted Right arm: Radial band without signs of hematoma, erythema, or infection; right hand neurovascularly intact and patient demonstrates ability to flex wrist and wiggle fingers; she reports intact, symmetric sensation in both hands bilaterally CV: chest wall NTP; pain is not reproducible on palpation; RRR; S1/S2 normal; 2/6 systolic ejection murmur auscultated at the second ICS MCL; pulses intact and symmetric at radial, DP, and PT Lungs: no acute respiratory distress; symmetrical chest wall expansion; clear breath sounds across all lung shea w/o adventitious sounds; no wheezing ABD: Soft, NTP; BS present; no rebound/guarding; no distention MSK: no tics or fasciculations; no edema noted in the LEs b/l, nonerythematous Neuro: A&Ox3; normal mood and affect; fluent speech; no focal deficits; sensation grossly intact in the LEs b/l Results & Data Results & Data Vital Signs (Past 12 Hours) Vital Signs Temp Pulse Pulse Resp BP BP Pulse Ox 08/21/23 08:27 92 H 159/109 H 08/21/23 08:22 78 18 159/109 H 96 08/21/23 08:10 85 08/21/23 08:06 84 162/108 H 08/21/23 07:31 36.6 C 95 H 20 191/121 H 96 08/21/23 07:29 89 18 179/114 H 98 08/21/23 07:29 O2 Del Method 08/21/23 08:27 08/21/23 08:22 08/21/23 08:10 08/21/23 08:06 08/21/23 07:31 Room Air 08/21/23 07:29 Room Air 08/21/23 07:29 Room Air Laboratory Results Abnormal lab results 08/21/23 08/21/23 Range/Units 07:44 09:39 RBC 5.50 H (4.20-5.40) M/uL Hgb 16.5 H (12.0-16.0) g/dl Hct 49.5 H (37.0-47.0) % Activ Coag Time Kaolin 266 H (94-140) SECONDS BUN/Creatinine Ratio 29.9 H (10-20) Glucose 120 H (70-99(Fasting)) mg/dl Troponin I High Sens 170.2 H* (0-14) pg/ml B-Natriuretic Peptide 213 H (0-100) pg/ml TSH 5.388 H (0.300-4.500) uIu/ml Diagnostic Findings Chest X-Ray 08/21/23 07:48 XR chest 1V portable CLINICAL HISTORY: cp TECHNIQUE: Single frontal radiograph of the chest was obtained. Comparison: Comparison is made to chest radiograph 06/02/2015 FINDINGS: No lines and tubes are seen. The cardiomediastinal silhouette is normal. The lungs are clear. No evidence of pleural effusion or pneumothorax. IMPRESSION: No acute chest disease. ACT 112: Negative or not required by law. Electronically signed by: Chong Eagle M.D. 08/21/2023 8:08 AM ECG Additional Comments: ECG revealed NSR at 80 bpm on arrival Anterolateral lateral T wave inversions, which could indicate ischemia None prior on most recent EKG on 08/16/2020 Repeat ECG one hour later revealed ST elevation in anterior leads consistent with anterior infarct; 90 bpm; QTc 477 Code Status & VTE Plan Code Status Full code (discussed with patient at bedside) VTE Prophylaxis Plan VTE Prophylaxis will be ordered: Yes Supervising Physician Co-Signing Physician Notes Patient seen and examined, chart reviewed, case discussed with Josias Dinh PA-C and I agree with the assessment and plan as above except as otherwise noted [] [] Labs and images reviewed Aydee is a 63-year-old female with past medical history of osteoarthritis, SVT, hypertension, increased intraocular pressure who takes meloxicam daily, metoprolol, and valsartan prior to admission who has had intermittent chest pain for the last 3 days. Patient thought this was related to GERD and was worse positionally initially was not worsened on exertion however on day of presentation pain had increased in intensity, was with radiation into the left chest and right shoulder was associated with some nausea and caused her to present to the ER for evaluation. Initial troponin was elevated at 170, BNP elevated to 13, EKG showed territorial T wave inversions across the anterior/lateral leads which were not present on baseline EKG 08/16/2020. Serial EKG showed evolving STEMI and the development of territorial ST elevations in the anterior leads. Patient was taken emergently to the cardiac [facility]. She was loaded with heparin/Brilinta while in the ER. she was found to have a near complete LAD occlusion and received 1 stent to her LAD. STEMI Near total occlusion of LAD s/p 1 stent to the LAD Continue DAPT aspirin/Brilinta, atorvastatin, valsartan, and metoprolol with up titration as tolerated Troponin trended to peak, echo pending Interventional cardiology following, appreciate care and recommendations [Access site] [TR band] [vascular] [Post procedure chest pain] Medical comorbidities: Arthritis. Foot and ankle changes suspect osteoarthritis, has followed with rheumatology however is not felt to have inflammatory/rheumatoid arthritis. Recommended continued follow-up with podiatry. Hypertension Low-salt diet Continue beta-paxton/ARB. Received labetalol 5 mg x 1 for hypertension Repeat pressure [] [] Migraines - [] Prolonged QT Continue monitoring on telemetry History of GERD Pepcid as needed. Recommend avoiding NSAIDs. Renal function normal PG Care Time/CCT Total # of Minutes Spent Total Time Spent with Patient: Total time spent is greater than 50% in coordination of care (as documented) at patient's floor/unit and/or counseling patient: [place] [address] INT INP/OBS CARE MIN Patient Type New History Comprehensive Exam Comprehensive Medical Decision Making High Complexity Diagnoses ST elevation (STEMI) myocardial infarction I21.3 Hypertension I10 NSAID sensitivity Z88.6 Chest pain R07.9
--- NOTE | 2023-08-21 10:17 | Post Anesthesia Assessment ---
Date of Service August 21, 2023 Post Sedation Assessment Vital Signs Temp Pulse Pulse Resp BP BP Pulse Ox 08/21/23 08:27 92 H 159/109 H 08/21/23 08:22 78 18 159/109 H 96 08/21/23 08:10 85 08/21/23 08:06 84 162/108 H 08/21/23 07:31 97.9 F 95 H 20 191/121 H 96 08/21/23 07:29 89 18 179/114 H 98 08/21/23 07:29 O2 Del Method 08/21/23 08:27 08/21/23 08:22 08/21/23 08:10 08/21/23 08:06 08/21/23 07:31 Room Air 08/21/23 07:29 Room Air 08/21/23 07:29 Room Air Recovery Score Activity: Moves 4 extremities Respiration: Deep Breath/Cough Circulation: +/-20% PreAnes Value Consciousness: Fully Awake Oxygen Saturation: O2 needed for >90% Discharge Sedation Level of Care: Fast Track Phase II Post Sedation Plan On clinical assessment, the patient appears to have tolerated the sedation without complications. Patient is recovering as anticipated. Patient will continue to be monitored by nursing and may be discharged when sedation discharge criteria are met per below protocol. Upon Completions of procedure up to 15 minutes continue every 5 minute vital signs and the P.A.R. score; then discharge to a Phase I or Fast Track to Phase II per the following guidelines: * Discharge Patient to appropriate Phase II area if PAR is 8 or greater or return to pre- procedure baseline. The post - procedure orders will be as directed. * If PAR score is less than 8 or not return to pre-procedure baseline then patient will follow Phase I monitoring till PAR is reached for Phase II. The Phase I may be done in procedure room or may call to secure a Phase I area. * If naloxone or flumazenil are used for reversal, hold in Phase I for continued monitoring from when last reversal dose was given for a minimum of 60 minutes or longer pending the nurse and/or physician discretion of patient condition before discharge to Phase II. Please call the Sedation Physician to re-evaluate and complete post-note for discharge to Phase II area. Do NOT discharge from procedure sedation or Phase 1 until post- sedation evaluation note is complete by procedure /sedation MD Sedation Discharge Instructions to be given to the patient at discharge to home.
--- NOTE | 2023-08-21 10:29 | Cardiac Catheterization ---
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 Cardiac Status Clinical evaluation leading to the procedure CAD Presenation: STEMI Anginal Classification: CCS IV Diagnostic Physicians Name: Mega Galeana MD Closure Device Recommendations: PCI without planned CABG Cardiac Cath Procedure Full Procedure Date August 21, 2023 Pre-Procedure Diagnosis Pre-Procedure Diagnosis: STEMI AUC Score AUC Score: 9 Post-Procedure Diagnosis Post-Procedure Diagnosis: Severe CAD, Successful PCI and Normal Intracardiac Pressures Procedure(s) Performed Procedure(s) Performed: Coronary Angiography, Left Heart Cath and Drug Eluting Stent Wheat Washer Mega Galeana MD Bunk Assembler(s) Showers Estimated Blood Loss Estimated Blood Loss: 15 Medication(s) Medication(s): Fentanyl, Heparin, Lidocaine 1%, Nicardipine, Nitroglycerin and Versed Medication(s): Ticagrelor Summary of Findings Indication: STEMI/Heart Alert Access: 6 Fr right radial artery Catheters: EBU 3.5 guide, diagnostic JR4 Findings: LM -normal caliber, no significant disease LAD -medium caliber vessel, 30% ostial stenosis. Acute 98% mid stenosis and distal ISI II flow. Distal vessel without significant disease and extends to apex. Small diagonals without disease. Circumflex -medium caliber angulated takeoff. No significant disease. Gives off 3 medium caliber OM's without disease. RCA -dominant, medium caliber, mildly calcified, 30 to 40% mid segment stenosis. RPDA, PLB's without significant disease. LVEDP -15 -- PCI -- Antithrombotic therapy: Heparin, ticagrelor Procedure: Left main cannulated with EBU 3.5 guide [place] blue wire passed across lesion into distal vessel Mid LAD lesion predilated with 2.5 compliant balloon Dilated lesion stented with 3.0 x 18 mm [place] drug-eluting stent Stent post-dilated with 3.5 noncompliant balloon IC vasodilators administered for spasm Post procedure ISI 3 flow, stent well expanded with minimal residual stenosis and no apparent cardiac complications. Arterial Closure: TR band Summary: 1. Acute 98% mid LAD stenosis with ISI II flow 2. Mild non-culprit coronary artery disease -30-40% mid RCA 3. Normal intracardiac filling pressure 4. Successful PCI of mid LAD with single drug-eluting stent (3.0 x 18 mm [place] SD: Postdilated with 3.5 NC). Recommendations: Admit to PCU for continued monitoring Loaded with ticagrelor 180 mg in Scale Tank Operator Continue dual-antiplatelet therapy for at least 1 year. Trend troponins until peak, Check Echo Continue beta-paxton/ARB High-dose statin Consult cardiac Rehab Hemodynamics Rest Ao:: 161/87/119 Final Ao: 141/88/105 LV: 148/15 Recommendations Recommendations: PCI without planned CABG Specimens Specimens: None Radiation Exposure (mGy) 1326 Contrast (mls) 80 Anesthesia Moderate [id number] Procedural Complication(s) None Disposition PCU I attest to the content of the Intraoperative Record and any orders documented therein. Any exceptions are noted below. [facility] Card Cath Procedure Codes Cardiac Catheterization Procedure 1: Cardiovascular Cath Procedures: 88197 Coronaries and LHC (+/-LV) Moderate Sedation Procedure 1: Sedation/Anesthesia: 49550 Mod Sedation by the same physician;Init15 Min Child Age 5 & Up Procedure 2: Sedation/Anesthesia: 66583 Mod Sedation by the same physician; Ea [id number] Minutes Stenting Procedure 1: Cardiovascular Stent Procedures: 73063 Perc transluminal revascularization of acute sub/total occl, aMI PG Care Time/CCT Total # of Minutes Spent Total Time Spent with Patient: Total time spent is greater than 50% in coordination of care (as documented) at patient's floor/unit and/or counseling patient:
--- OUTSIDE RECORDS SUMMARY | 2023-08-21 11:32 | External Medical Summary | Continuity of Care Document ---
Author Name Unknown Organization [address] Address [address] [place] [address] [phone] Care Team Providers Care Pediatric Physical Therapy Assistant Name Role Phone Akira Gee Primary Care Physician [phone] [facility]counter [facility] [id number] Date(s): 04/15/23 - 04/15/23 [facility] [address], [address] [place] [address] [phone] Encounter Diagnosis Prolonged QT interval(Discharge Diagnosis) - 04/15/23 HTN (hypertension)(Discharge Diagnosis) - 04/15/23 Palpitations(Discharge Diagnosis) - 04/15/23 Discharge Disposition: Home or Self Care Attending Physician: DO Laboy Jason D Allergies, Adverse Reactions, Alerts Substance Reaction Severity Status naproxen Active lisinopril cough Active PCN (penicillin) Active Clinoril Active Assessment and Plan Extracted from: Title:Cardiology Office Visit Note Author:DO Laboy Jason D Date:04/15/23 1.HTN (hypertension) 2.Palpitations 3.Prolonged QT interval I am concerned about her high blood pressure. My hope is that when she retires her blood pressure will improve. She really is resistant to additional medication at this point. She notes in the past we tried higher doses of beta-blockers and she felt spacey. We discussed checking her blood pressure once a day alternating the time of day after she retires. This will allow us to see what her blood pressures are through the mid to any portion of June and then have her come back to the next to see Iris. If at that point her diastolic blood pressures remain high even in mcc I would consider doubling her valsartan. We also discussed hopefully she will be able to reduce her NSAID needs when she retires and has been on her feet all day. We discussed trying to use topical NSAIDs with Tylenol rather than taking something like Mobic on a regular basis. Her palpitations are stable at this point and only occur once a year and yossi with verapamil. At this point we will continue with medical therapy. She will see Iris in 3 months. I will see her in a year. Immunizations Given and Recorded Vaccine Date Status Refusal Reason SARS-CoV-2 mRNA (tozinameran 5y-11y) 02/25/21 Silvino rded SARS-CoV-2 mRNA (tozinameran 5y-11y) 01/28/21 Silvino rded Medications clobetasol 0.05% topical solution Start: 07/31/22 11:36:00 EDT, 1 appl, topical, bid, Disp# 50 mL, Refills: 1, to scalp, Pharmacy: [id number] Start Date: 07/31/22 Status: Ordered diclofenac 1% topical gel See Instructions, Disp# 100 g, Refills: 0, apply 1 application onto lateral right ankle 4 times daily if needed, Pharmacy: [id number] Start Date: 06/18/20 Status: Ordered Metoprolol Succinate ER 25 mg oral tablet, extended release Start: 09/10/22 11:02:00 EDT, 1 tab, PO, Daily, Disp# 90 tab, Refills: 3, Pharmacy: [id number] Start Date: 09/10/22 Status: Ordered traMADol 50 mg oral tablet Start: 08/07/22 11:17:00 EDT, 1 tab, PO, qhs, Disp# 30 tab, PRN: as needed for pain, [id number] Start Date: 08/07/22 Status: Ordered valsartan 80 mg oral tablet Start: 04/17/22 15:40:00 EST, 1 tab, PO, Daily, Disp# 90 tab, Refills: 3, Pharmacy: [id number] Start Date: 04/17/22 Status: Ordered verapamil 80 mg oral tablet Start: 12/08/22 9:59:00 EDT, See Instructions, Disp# 45 tab, Refills: 3, TAKE 2- 3 TABLETS BY MOUTH NEEDED FOR EXTENDED PALPITATIONS, Pharmacy: [id number] Start Date: 12/08/22 Status: Ordered Problem List Condition Confirmation Course Effective Dates Status Health St atus Informant Eczema of external ear Confirmed Active Right ankle pain Confirmed Active Left ankle pain Confirmed Active Ankle arthritis Confirmed Active Foot pain, left Confirmed Active H/O varicose veins Confirmed Active Leg heaviness Confirmed Active HLD (hyperlipidemia) Confirmed Active HTN (hypertension) Confirmed Active Right knee pain Confirmed Active Knee pain Confirmed Active Lyme disease Confirmed Active Migraine Confirmed Active Obesity Confirmed Active Right knee DJD Confirmed Active Palpitations Confirmed Active Plantar fasciitis Confirmed Active Prolonged QT interval Confirmed Active Snores Confirmed Active Ankle swelling Confirmed Active Varicose veins of legs Confirmed Active Diagnosis Diagnosis Type Effective Dates Health Status Clinical Service Informant HTN (hypertension) Discharge Diagnosis 04/15/23 Prolonged QT interval Discharge Diagnosis 04/15/23 Palpitations Discharge Diagnosis 04/15/23 Procedures Procedure Date Related Diagnosis Body Site Status Ultrasound scan of calf of r ight lower leg 1 09/11/22 Completed X-ray of right knee 2 09/11/22 Com pleted X-ray of right ankle 3 07/18/22 Co mpleted Right shoulder arthroscopy, rotator cuff repair, extensive debridement 4 08/22/20 Completed MRI of right shoulder 5 07/10/20 C ompleted Right ankle X-ray 6 04/15/20 Compl eted Pap smear and HPV cotesting 06/08/19 Completed Excision left breast needle localization 7 09/01/16 Completed Specimen obtained from breas t by ultrasound guided needle biopsy 05/21/16 Completed Ultrasound guided biopsy 8 05/21/16 Completed ULTRASOUND BREAST LIMITED 9 05/13/16 Completed PAP test date 10 03/26/16 Complete d Cystoscopy 11 02/16/08 Completed D&C - Dilatation and curettage Completed Tonsillectomy Completed Tonsillectomy Completed 1IMPRESSION: There is no sonographic evidence of deep venous thrombosis identified in the right lower extremity. 2Impression: Osteopenia and arthritic change as above no acute bony abnormality identified. 3Impression: No acute fracture or dislocation Medial ankle and hindfoot soft tissue swelling 4Post-op diagnosis: right rotator cuff tear and biceps tendinopathy 5impression large retracted rotator cuff tear 61. Soft tissue swelling and joint effusion with no fracture identified 2. Small dorsal and large plantar calcaneal heel spurs 7Dr. Monicaa surgeon. Final diagnosis Fibrocystic changes with usual ductal hyperplasia. See comment mammary ductal ectasia changes consistent with previous biopsy site Negative for in situ and invasive carcinoma Comment: Sections show a relatively distinct area of fibrocystic change and duct ectasia with areasof usual ductal hyperplasia. Small foci of papillomatosis are noted but a well defined intraductal papilloma is not seen. 8fibrocystic change with aprocrine metaplasia, focal adenosis, and a papillary proliferation consistent with a papilloma is seen. Carcinoma is NOT seen. Please note that the papillar yneoplasm in thiscase fails to reveal significant cytologic atypia. 9dense echogenic tissue surrounding this abnormal tangle of ducts. lesion mesures aprox 23.5 x 11.4 x 18.6mm & correlates well with the focal mammographic assymetry. 10negative for intraepithelial lesion or malignancy 11monarch sling for stress inctontinence Vital Signs Most recent to oldest [Reference Range]: 1 Patient Weight 88 kg (04/15/23 10:42 AM) Heart Rate 87 bpm (04/15/23 10:42 AM) Blood Pressure 128/90mmHg (04/15/23 10:42 AM) BP Location # 1 Right Arm (04/15/23 10:42 AM) Social History Social History Type Response Smoking Status Never smoked cigaret jigna Sex Female Cardiology Outpatient Note * DO Laboy Jason D: PERFORM Event Display: Cardiology Outpt Note Authored Date: Primary Care Provider MD Akira, Joaquinduke [facility] Chief Complaint 1 year f/u htn SVT History of Present Illness She denies any chest pain or chest pressure. She had 1 episode of palpitations that she does on ayearly basis. This was past January. She checks her blood pressure about once a month and notes that her diastolic blood pressure is around 90 all the time. She is retiring in June from the [employer]. She has been using some NSAIDs both topical and oral. She notes when she takes NSAIDs she does have itching. She has had no falls or syncopal episodes. She notes her feet bother her more when she is workingstanding on the concrete all day. She does a fair amount of lifting without any issues. She canclimb a flight of stairs at home without any cardiac symptoms. She has no orthostatic symptoms. She denies any headaches or double vision or blurry vision. Review of Systems PAST MEDICAL HISTORY: 1. Palpitations most consistent with SVT. 2. History of EKG with nonspecific T-wave changes. 3. Plantar fasciitis. 4. Hypertension. 5. History of mildly prolonged QT, which has now normalized. 6. Symptomatic varicose veins. SOCIAL HISTORY: She is getting . She denies ever using tobacco or alcohol. She works at [email or web address] in [employer]. Physical Exam Vitals & Measurements HR:87(Monitored) BP:128/90 SpO2:96% WT:88kg WT:88.000kg(Dosing) EXAM: She is awake, alert, oriented x3. She is no acute distress. She is a well-appearing female who looks her stated age. HEENT: 2+ carotid upstrokes on the left. There was no evidence of carotid bruits. Her jugularvenous pressure appeared normal. Sclerae was anicteric. Her hearing is normal. Lungs clear toauscultation bilaterally, no rales, rhonchi or wheezing. Heart: Regular rate and rhythm, no appreciable murmurs, rubs or gallops. Extremities: No clubbing, cyanosis or edema. Psychiatric: Her affect appeared appropriate. Assessment/Plan 1.HTN (hypertension) 2.Palpitations 3.Prolonged QT interval I am concerned about her high blood pressure. My hope is that when she retires her blood pressurewill improve. She really is resistant to additional medication at this point. She notes in the past we tried higher doses of beta- blockers and she felt spacey. We discussed checking her blood pressure once a day alternating the time of day after she retires. This will allow us to see what her blood pressures are through the mid to any portion of June andthen have her come back to the next to see Iris. If at that point her diastolic blood pressures remain high even in [facility] I would consider doubling her valsartan. We also discussed hopefully she will be able to reduce her NSAID needs when she retires and has been on her feet all day. We discussed trying to use topical NSAIDs with Tylenol rather than taking something like Mobic on a regular basis. Her palpitations are stable at this point and only occur once a year and yossi with verapamil. Atthis point we will continue with medical therapy. She will see Iris in 3 months. I will see her in a year. Problem List/Past Medical History Ongoing Ankle arthritis Ankle swelling Eczema of external ear Foot pain, left H/O varicose veins HLD (hyperlipidemia) HTN (hypertension) Knee pain Left ankle pain Leg heaviness Lyme disease Migraine Obesity Palpitations Plantar fasciitis Prolonged QT interval Right ankle pain Right knee DJD Right knee pain Snores Varicose veins of legs Historical Facial swelling Low back pain Papilloma of left breast Sacroiliac joint dysfunction of left side Weight disorder Procedure/Surgical History Ultrasound scan of calf of right lower leg (09/11/2022)X-ray of right knee (09/11/2022)X-ray of right ankle (07/18/2022)Right shoulder arthroscopy, rotator cuff repair, extensive debridement (08/22/2020)MRI of right shoulder (07/10/2020)Right ankle X-ray (04/15/2020)Pap smear and HPV cotesting (06/08/2019)Excision left breast needle localization (09/01/2016)Ultrasound guided biopsy (05/21/2016)Specimen obtained from breast by ultrasound guided needle biopsy (05/21/2016)ULTRASOUND BREAST LIMITED (05/13/2016)PAP test date (03/26/2016)Cystoscopy (02/16/2008) Tonsillectomy D&C - Dilatation and curettage Tonsillectomy Medications clobetasol topical(clobetasol 0.05% topical solution), 1 appl, topical, bid, 1 refills diclofenac topical(diclofenac 1% topical gel), See Instructions metoprolol(Metoprolol Succinate ER 25 mg oral tablet, extended release), 25 mg= 1 tab, PO, Daily, 3refills traMADol(traMADol 50 mg oral tablet), 50 mg= 1 tab, PO, qhs, PRN valsartan(valsartan 80 mg oral tablet), 80 mg= 1 tab, PO, Daily, 3 refills verapamil(verapamil 80 mg oral tablet), See Instructions Allergies Clinoril PCN (penicillin) lisinoprilcough naproxen Social History Smoking Status Never smoked cigarettes Alcohol - Denies Alcohol Use Tobacco - Denies Tobacco Use Family History Alzheimer disease: Mother. Hypertension: Father. Parkinson disease: Father. 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 [facility] [place] [address] [facility], [address] [place] [address] JDF Patient Care team information Care Team Personnel Name: IRIS Bartlett, Cris Palacios Position: Physician Asst Exmpt - Family Med Member Role: Lifetime Relationship Address: Address: [address] [place] [id number] [place] Name: MD Champion Dongsheng Position: Physician - Family Med Member Role: Primary Care Provider Address: Address: [address] [facility] [address] [place] [address] [place] Name: IRIS Reed Lynn Position: Physician Residence Hall Director Exempt - Vasc Surg Member Role: Lifetime Relationship Address: Address: [address] [place] [address] [address] [place] [id number] Care Team Related Persons Name: KELLY BYRD
[2023-08-21] MEDS: PANTOprazole 40 MG TAB PO STA (13:45)
[2023-08-21] MEDS: METOPROLOL TARTRATE 25 MG TAB PO SCH (13:45)
--- NOTE | 2023-08-21 16:54 | Electrocardiogram Report ---
Test Reason : Blood Pressure : / mmHG Vent. Rate : 096 BPM Atrial Rate : 096 BPM P-R Int : 148 ms QRS Dur : 076 ms QT Int : 384 ms P-R-T Axes : 048 019 110 degrees QTc Int : 485 ms Normal sinus rhythm T wave abnormality, consider anterolateral ischemia Prolonged QT Abnormal ECG When compared with ECG of 16-AUG-2020 07:42, Nonspecific T wave abnormality now evident in Inferior leads T wave inversion now evident in Anterolateral leads Confirmed by Mega Mcdowell ([id number]) on 08/21/2023 4:54:12 PM Referred By: Gal Chong Confirmed By:Shubham Mcdowell
--- NOTE | 2023-08-21 16:54 | Electrocardiogram Report ---
Test Reason : Blood Pressure : / mmHG Vent. Rate : 080 BPM Atrial Rate : 080 BPM P-R Int : 160 ms QRS Dur : 076 ms QT Int : 416 ms P-R-T Axes : 071 015 -11 degrees QTc Int : 479 ms Normal sinus rhythm T wave abnormality, consider anterolateral ischemia Abnormal ECG When compared with ECG of 21-AUG-2023 07:37, (unconfirmed) No significant change was found Confirmed by Mega Mcdowell ([id number]) on 08/21/2023 4:54:05 PM Referred By: Gal Chong Confirmed By:Shubham Mcdowell
[2023-08-21] MEDS: TICAGRELOR 90 MG TAB PO SCH (20:33)
[2023-08-22 06:51] LABS: Basophils # (auto) 0.03 K/uL (0.00-0.20); Basophils % (auto) 0.6 %; Eosinophils # (auto) 0.25 K/uL (0.00-0.50); Eosinophils % (auto) 4.9 %; Hematocrit (blood only) 42.7 % (37.0-47.0); Hemoglobin 14.2 g/dl (12.0-16.0); Immature Granulocytes # (auto) 0.01 K/uL (0.01-0.20); Immature Granulocytes % (auto) 0.2 %; Lymphocytes # (auto) 1.23 K/uL (1.20-3.40); Lymphocytes % (auto) 24.2 %; Mean Corpuscular Hemoglobin 29.7 pg (25.0-34.0); Mean Corpuscular Hgb Conc 33.3 g/dL (32.0-36.0); Mean Corpuscular Volume 89.3 fL (80.0-100.0); Mean Platelet Volume 9.9 fL (9.4-12.4); Monocytes # (auto) 0.41 K/uL (0.11-0.59); Monocytes % (auto) 8.1 %; Neutrophils # (auto) 3.16 K/uL (1.40-6.50); Platelet Count 192 K/uL (130-400); RDW Standard Deviation 42.5 fL (36.4-46.3); Red Blood Count 4.78 M/uL (4.20-5.40); White Blood Count 5.09 K/ul (4.8-10.8)
[2023-08-22 07:02] LABS: BUN Creatinine Ratio 26.5 (10-20); Calcium 8.4 mg/dl (8.6-10.3); Chol HDL Ratio 4.1 (0-5); Est GFR (African American) 106.4 ml/min; Est GFR (Non-African American) 91.8 ml/min; Potassium 4.2 mmol/L (3.5-5.1)
--- NOTE | 2023-08-22 07:15 | Electrocardiogram Report ---
Test Reason : Blood Pressure : / mmHG Vent. Rate : 074 BPM Atrial Rate : 074 BPM P-R Int : 154 ms QRS Dur : 074 ms QT Int : 428 ms P-R-T Axes : 022 030 111 degrees QTc Int : 475 ms Normal sinus rhythm Nonspecific T wave abnormality Abnormal ECG When compared with ECG of 21-AUG-2023 11:40, (unconfirmed) No significant change was found Confirmed by Mega Mcdowell ([id number]) on 08/22/2023 7:15:42 AM Referred By: Gal Chong Confirmed By:Shubham Mcdowell
[2023-08-22] MEDS: ASPIRIN 81 MG ECTAB PO SCH (07:59)
[2023-08-22] MEDS: ATORVASTATIN 40 MG TAB PO SCH (07:59)
[2023-08-22] MEDS: PANTOprazole 40 MG TAB PO SCH (08:00)
[2023-08-22] MEDS: VALSARTAN 80 MG TAB PO SCH (08:01)
--- NOTE | 2023-08-22 10:56 | Cardiology Progress Note ---
Date of Service August 22, 2023 Assessment & Plan (1) CAD (coronary artery disease): Plan: --Acute PR post MANNY to mid LAD --Mild nonculprit disease 2. Preserved LV function apical-septal wall motion abnormality 3. Suspected LV apical thrombus 4. Hypertension 5. Dyslipidemia--LDL 165 6. History of SVT Chest pain free. Modest troponin elevation. Electrically stable. No signs of heart failure on exam. No access site complications. Echo reviewed -- LV function overall preserved but does have apical septal wall motion abnormality and appears to have an associated apical LV thrombus. Unexpected finding with relatively brief ischemia and mild injury. No prior echos for comparison. For now feel should treat as if thrombus is present and anticoagulate. --Start Eliquis 5 mg BID --Transition Ticagrelor to clopidogrel tomorrow. Load with 300mg in AM. --Continue triple therapy on discharge with ASA/clopidogrel/Eliquis --Increase metoprolol to 25mg TID --Continue current valsartan --Continue current atorvastatin --continue PPI --Recommend monitoring overnight. Will discuss with primary siphon operator Dr. Laboy in AM. Likely home tomorrow. --Discussed cardiac rehab and interested in participating. Admission and Anticipated Discharge Date Admission Date: August 21, 2023 Subjective Feeling well this morning. Prior chest pain resolved. Mild nausea with trying to take all her new pills. Telemetry -- sinus, no events. Review of Systems Review of Systems: All systems reviewed & are unremarkable except as noted in HPI & below Physical Exam Physical Exam: General: Comfortable HEENT: Sclerae anicteric Lungs: Clear to auscultation bilaterally, few distant wheezes Cardiac: Regular rate and rhythm, 2/6 JESSY at LUSB Vascular: 2+ RT radial. Mild ecchymosis. No hematoma. Intact distal cap refill. 2+ PT pulses bilaterally Abdomen: Soft, nontender Extremities: Well perfused, no peripheral edema Neuro: Nonfocal Psych: Alert orient x3, normal affect and mood Results & Data Vital Signs (Past 12 Hours) Vital Signs Temp Pulse Pulse Resp BP Pulse Ox O2 Del Method 08/22/23 10:14 08/22/23 07:23 98.2 F 84 16 153/105 H 97 Room Air 08/22/23 02:40 98.2 F 65 16 104/67 98 Room Air 08/21/23 23:54 66 05/11/24 23:00 98.4 F 65 18 100/61 94 Room Air O2 Del Method 08/22/23 10:14 Room Air 08/22/23 07:23 08/22/23 02:40 08/21/23 23:54 08/21/23 23:00 PG Care Time/CCT Total # of Minutes Spent Total Time Spent with Patient: Total time spent is greater than 50% in coordination of care (as documented) at patient's floor/unit and/or counseling patient: Coding Level of Care Code 00673 SUB INP/OBS CARE 3/50MIN Diagnoses CAD (coronary artery disease) I25.10
[2023-08-22] MEDS: APIXABAN 5 MG TABLET PO SCH (11:37)
--- NOTE | 2023-08-22 12:20 | Electrocardiogram Report ---
Test Reason : Blood Pressure : / mmHG Vent. Rate : 083 BPM Atrial Rate : 083 BPM P-R Int : 158 ms QRS Dur : 070 ms QT Int : 416 ms P-R-T Axes : 048 015 110 degrees QTc Int : 488 ms Normal sinus rhythm T wave abnormality, consider anterior ischemia Abnormal ECG When compared with ECG of 21-AUG-2023 08:18, No significant change was found Confirmed by Mega Mcdowell ([id number]) on 08/22/2023 12:20:16 PM Referred By: Gal Chong Confirmed By:Shubham Mcdowell
[2023-08-22] MEDS: METOPROLOL TARTRATE 25 MG TAB PO SCH (13:47)
--- NOTE | 2023-08-22 13:56 | Hospitalist Progress Note ---
Date of Service August 22, 2023 Assessment & Plan (1) ST elevation (STEMI) myocardial infarction: Plan: Intermittent, substernal chest pain at rest that started on Thursday 08/17 [address]s [address] into acute ST elevation VA Troponin elevated and trended, checks stopped with last (and peak) 871 ASA + Brilinta load given in the ED Interventional cardiology consulted Taken emergently to laboratory specialist S/p 1 MANNY in the LAD Heparin IV with bolus --> now on Eliquis 5mg BID due to LV thrombus (see below) Started aspirin 81 mg daily Started Ticagrelor 90 mg BID --> transition to clopidogrel tomorrow 08/22load with 300 mg in a.m. per cardiology Started Atorvastatin 80mg daily Echocardiogram report pending but per Dr Galeana: preserved LV function with apical septal wall motion abnormality with associated apical LV thrombus A1c pending (2) Hypertension: Plan: Metoprolol succinate 25 mg p.o. --> Metoprolol tartrate 12.5 mg p.o. BID --> increased to 25 mg 3 times daily per cardiology Continue valsartan 160 mg daily (3) Dyslipidemia: Plan: Total cholesterol 249, LDL 165 Atorvastatin 80 mg daily (4) NSAID sensitivity: Plan: Patient does note allergy to NSAIDs (hives and occasional rash; no history of anaphylaxis or throat closure) Not currently taking meloxicam Will start on Protonix 40 mg p.o. daily for now Plan Disposition: Admit to PCU telemetry Full code Heart healthy diet VTE PPx: Eliquis Admission and Anticipated Discharge Date Admission Date: August 21, 2023 Subjective Denies any chest pain, shortness of breath, lightheadedness/dizziness, abdominal pain, nausea Review of Systems Review of Systems: Per subjective Physical Exam Physical Exam: General: Well-appearing, NAD Cardiovascular: RRR, +systolic murmur Pulmonary: CTAB, no W/R/R Abdomen: Soft, NT/ND, no guarding Extremities: Moving all extremities, no pedal edema Integumentary: No suspicious rash or lesion on exposed skin Neurologic: AAOx3, no focal deficits Psychiatric: Appropriate mood/affect Results & Data Results & Data Vital Signs (Past 12 Hours) Vital Signs Temp Pulse Resp BP Pulse Ox O2 Del Method O2 Del Method 08/22/23 11:31 36.7 C 72 18 136/83 96 Room Air 08/22/23 10:14 Room Air 08/22/23 07:23 36.8 C 84 16 153/105 H 97 Room Air 08/22/23 02:40 36.8 C 65 16 104/67 98 Room Air Laboratory Results CBC and BMP unremarkable. Cholesterol reviewed with total cholesterol elevated at 249 with LDL of 165 and HDL 61. A1c pending Diagnostic Findings Formal echo report pending, but per conversation with Dr. Galeana of cardiology and his note documentation, preserved LV function with apical septal wall motion abnormality with associated apical LV thrombus PG Care Time/CCT Total # of Minutes Spent Total Time Spent with Patient: Total time spent is greater than 50% in coordination of care (as documented) at patient's floor/unit and/or counseling patient: Coding Level of Care Code 72833 SUB INP/OBS CARE 3/50MIN Diagnoses ST elevation (STEMI) myocardial infarction I21.3 Hypertension I10 Dyslipidemia E78.5 NSAID sensitivity Z88.6
[2023-08-23 07:25] LABS: Basophils # (auto) 0.02 K/uL (0.00-0.20); Basophils % (auto) 0.4 %; Eosinophils # (auto) 0.21 K/uL (0.00-0.50); Eosinophils % (auto) 3.7 %; Hematocrit (blood only) 42.8 % (37.0-47.0); Hemoglobin 14.1 g/dl (12.0-16.0); Immature Granulocytes # (auto) 0.02 K/uL (0.01-0.20); Immature Granulocytes % (auto) 0.4 %; Lymphocytes # (auto) 1.31 K/uL (1.20-3.40); Mean Corpuscular Hemoglobin 29.5 pg (25.0-34.0); Mean Corpuscular Hgb Conc 32.9 g/dL (32.0-36.0); Mean Corpuscular Volume 89.5 fL (80.0-100.0); Mean Platelet Volume 10.3 fL (9.4-12.4); Monocytes # (auto) 0.47 K/uL (0.11-0.59); Monocytes % (auto) 8.2 %; Neutrophils # (auto) 3.67 K/uL (1.40-6.50); Neutrophils % (auto) 64.3 %; Platelet Count 189 K/uL (130-400); RDW Standard Deviation 42.9 fL (36.4-46.3); Red Blood Count 4.78 M/uL (4.20-5.40)
[2023-08-23 07:32] LABS: Estimated Average Glucose 117 mg/dl; Hemoglobin A1C 5.7 % (4.5-5.6)
[2023-08-23] MEDS: CLOPIDOGREL BISULFATE 300 MG TAB PO ONE (08:13)
[2023-08-23 08:23] LABS: BUN Creatinine Ratio 30.2 (10-20); Calcium 8.7 mg/dl (8.6-10.3); Creatinine Clr Calc Pharmacy 98.2 ml/min; Est GFR (African American) 109.1 ml/min; Est GFR (Non-African American) 94.1 ml/min; Potassium 4.1 mmol/L (3.5-5.1)
--- NOTE | 2023-08-23 09:36 | Cardiology Progress Note ---
Date of Service August 23, 2023 Assessment & Plan (1) CAD (coronary artery disease): Plan: --Acute DC post MANNY to mid LAD --Mild nonculprit disease 2. Preserved LV function apical-septal wall motion abnormality 3. Suspected LV apical thrombus 4. Hypertension 5. Dyslipidemia--LDL 165 6. History of SVT Chest pain free. Hemodynamically and electrically stable. No signs of heart failure on exam. No access site complications. From a cardiac standpoint doing well and okay with discharge today. --Continue triple therapy on discharge with ASA/clopidogrel/Eliquis --Home on Toprol-XL 50 mg BID --Continue current valsartan --Continue current atorvastatin --continue PPI Will refer to cardiac rehab --Discussed with Dr. Laboy. He will arrange follow-up Admission and Anticipated Discharge Date Admission Date: August 21, 2023 Subjective Feeling well this morning. No recurrent chest pain. No other new concerns. Telemetry reviewedno events Review of Systems Review of Systems: All systems reviewed & are unremarkable except as noted in HPI & below Physical Exam Physical Exam: General: Comfortable HEENT: Sclerae anicteric Lungs: Clear to auscultation bilaterally Cardiac: Regular rate and rhythm, 2/6 JESSY at LUSB Vascular: 2+ RT radial. Mild ecchymosis. No hematoma. Intact distal cap refill. Abdomen: Soft, nontender Extremities: Well perfused, no peripheral edema Neuro: Nonfocal Psych: Alert orient x3, normal affect and mood Results & Data Vital Signs (Past 12 Hours) Vital Signs Temp Pulse Pulse Resp BP Pulse Ox O2 Del Method 08/23/23 08:23 98.6 F 77 18 133/88 97 Room Air 08/23/23 03:03 98.1 F 74 16 132/75 97 Room Air 08/22/23 23:20 97.9 F 65 16 132/80 98 Room Air 08/22/23 23:01 74 PG Care Time/CCT Total # of Minutes Spent Total Time Spent with Patient: Total time spent is greater than 50% in coordination of care (as documented) at patient's floor/unit and/or counseling patient: Coding Level of Care Code 05264 SUB INP/OBS CARE 2/35MIN Diagnoses CAD (coronary artery disease) I25.10
--- NOTE | 2023-08-23 11:13 | Discharge Summary ---
Date of Service August 23, 2023 Admission HPI Per Admitting Provider Courtney is a 63-year-old female with PMH of HTN, rotator cuff tear, and osteoarthritis. She presented for worsening chest pain on the evening of 08/19. Patient reports she first began to develop intermittent chest pain at rest on Thursday 08/17. She initially thought this was indigestion. The chest pain then came to ahead on the evening of 08/19, where it became a burning substernal pain/pressure that would last for minutes at a time, and recur every 5 minutes. Associated symptoms included dizziness and 1 episode of diarrhea this morning. Patient did not take any additional pain medications at this time. The pain radiated to the right shoulder. No radiation to left shoulder or back. Patient could not sleep. She eventually took her regular morning medications metoprolol and losartan. It should be noted that certain medications such as NSAIDs/naproxen do cause her to develop a rash/hives. She does not follow with an human factors scientist. No history of airway closure or anaphylaxis. Note: It was stressed that this time that aspirin and Brilinta would be important moving forward. Patient notes that she no longer takes meloxicam or Celebrex. In regard to family history, she notes that her father had coronary artery disease involving stents and triple bypass. No personal history of PR. Patient denies smoking, tobacco use, and recent alcohol use. Patient does follow with Dr. Laboy for cardiology. On ED arrival, patient was taken emergently to the [facility] Up Scan Coordinator, for cardiac catheterization with Dr. Mega Galeana. After the procedure, patient reports that she is chest pain-free. She rates it 0 out of 10. She is mildly hypertensive at 145/85 at time of admission; SpO2 96% on RA; vitals otherwise stable. ROS post-cath: Patient denies fever, chills, nightsweats, dizziness, lightheadedness, CAMPBELL, changes in vision, chest pain or pressure, chest palpitations, SOB, abdominal pain, N/V, blood in the urine/stool, burning with urination, or pain/swelling/numbness/tingling in arms or legs. Principal Diagnosis Anterior non-ST elevation PR Discharge Exam General-alert and oriented x3, no fever, no chills HEENT-head atraumatic and normocephalic, pupils equal and reactive to light, extraocular muscles intact Neck-no lymphadenopathy or thyromegaly, trachea midline Chest-clear to auscultation. No rales, wheezing or rhonchi Cardiac-regular rate and rhythm, normal S1 and S2 Abdomen-normal bowel sounds, no hepatosplenomegaly Extremities-no cyanosis, clubbing, or edema Neuro-cranial nerves II through XII intact, motor and sensory function within normal limits, strength symmetrical, no focal deficits Psych-normal affect, normal mood Discharge Data Allergies Allergy/AdvReac Type Severity Reaction Status Date / Time naproxen Allergy Unknown Hives Verified 01/08/23 10:31 Penicillins Allergy Unknown hives Verified 01/08/23 10:31 sulindac [From [facility]] Allergy Unknown Hives Verified 01/08/23 10:31 Consultations 08/21/23 08:45 ED Decision to Admit Stat Procedures Performed Operation Date: 08/21/23 09:00 Actual Procedures s Cath, Left with Cors and Vent - Mega Galeana MD s Cineradiography w/Routine Exam - Mega Galeana MD p Aspiration/PCI w/MANNY for Stemi - Mega Galeana MD Ordered Studies 08/21/23 09:00 CL Cath Imgs for PACS use only Stat Hospital Course (1) ST elevation (STEMI) myocardial infarction: Hemodynamically stable at this time without chest pain. Case discussed with cardiology. On August 20 she underwent left heart catheterization with placement of LAD stent. There is a small apical clot evident on the cardiac echo with mid to distal septal wall akinesis. She is now on Eliquis. She will be discharged home today, August 22, on aspirin, Plavix, atorvastatin, metoprolol, and losartan. She was also given a prescription for sublingual nitroglycerin to use as needed for any recurrent chest discomfort. She will follow-up with her PCP and instrument checker within 1 week. Repeat EKG done today, August 22, continues to reveal anterior T wave inversion. (2) Hypertension: Metoprolol succinate has been switched to metoprolol to tartrate 50 mg twice daily. She will also remain on her usual dose of valsartan (3) Dyslipidemia: Total cholesterol 249, LDL 165. Atorvastatin 80 mg daily (4) NSAID sensitivity: Patient does note allergy to NSAIDs (hives and occasional rash) Plan Home today, August 22 Total Time Total Time Spent Total Time Spent (In Minutes): 45-minute Discharge Plan Discharge Items Patient Disposition: Home - Self-Care Reason For Visit: STEMI Discharge Diagnosis: Anterior non-ST elevation PR Activity: Per Instructions section Activity Comment: Avoid overexertion Non-emergency contact: Primary Care Provider and Research Microbiologist Call non-emergency contact if: you have any medication questions and your symptoms worsen Follow-up/Referrals: Gee Champion [Primary Care Provider] - Diet: Regular and Heart Healthy Addtl Attending Provider Instructions: Aspirin, clopidogrel, atorvastatin, Eliquis, metoprolol new medications. Use sublingual nitroglycerin as needed for any recurrent chest discomfort. Halie sartan remains the same. Pending Studies at Discharge: No Stand-Alone Forms: My Myagi, Smoking Cessation Medications and DC Order Prescriptions: New atorvastatin 40 mg Tablet 80 mg PO QAM Qty: 3 0RF clopidogrel 75 mg Tablet 75 mg PO QAM Qty: 30 0RF metoprolol tartrate 50 mg Tablet 50 mg PO BID Qty: 60 0RF Eliquis 5 mg Tablet 5 mg PO BID Qty: 60 0RF aspirin 81 mg Tablet,Delayed Release (Dr/Ec) 81 mg PO QAM Qty: 0 0RF Continued valsartan 80 mg tablet 160 mg PO DAILY meloxicam 15 mg tablet 15 mg PO DAILY diclofenac sodium 1 % Gel 2 g TOPICAL UD PRN (Reason: Pain) Rx Instructions: otc per pharmacy tramadol 50 mg tablet 50 - 100 mg PO Q6H PRN (Reason: pain) Qty: 15 0RF Rx Instructions: last filled August 2022 per pharmacy Initial Treatment Discontinued metoprolol succinate 25 mg Tablet Extended Release 24 Hr 25 mg PO QAM Discharge Orders: Discharge Order (Routine); Ordered 08/23/23 Ordered By: Graeme Massey Admission Data Admit Date/Time: 08/21/23 09:39 Attending Provider: Graeme Massey Admit Provider: Mega Galeana Primary Care Provider: Gee Champion Other Providers: Gal Chong Coding Level of Care Code 88961 INP/OBS DISCH >[address] elevation (STEMI) myocardial infarction I21.3 Hypertension I10 Dyslipidemia E78.5 NSAID sensitivity Z88.6
--- NOTE | 2023-08-23 11:58 | Pharmacy Report ---
ED Pharmacist Progress Note - ED Pharmacist Progress Note Date of Service:: August 23, 2023 Notes:: Forwarded call in ED regarding patients discharge atorvastatin prescription- written for 40 mg tablets with 80 mg dose daily but a dispense qty of #3. Messaged Dr. Massey who stated he would fix the prescription and resend.
--- NOTE | 2023-08-23 15:12 | Electrocardiogram Report ---
Test Reason : Blood Pressure : / mmHG Vent. Rate : 072 BPM Atrial Rate : 072 BPM P-R Int : 154 ms QRS Dur : 078 ms QT Int : 428 ms P-R-T Axes : 035 020 125 degrees QTc Int : 468 ms Normal sinus rhythm T wave abnormality, consider anterolateral ischemia Abnormal ECG When compared with ECG of 21-AUG-2023 18:55, No significant change was found Confirmed by Mega Mcdowell ([id number]) on 08/23/2023 3:11:37 PM Referred By: Gal Chong Confirmed By:Shubham Mcdowell
--- NOTE | 2023-08-23 15:22 | Electrocardiogram Report ---
Test Reason : Blood Pressure : / mmHG Vent. Rate : 087 BPM Atrial Rate : 087 BPM P-R Int : 154 ms QRS Dur : 080 ms QT Int : 392 ms P-R-T Axes : 049 015 005 degrees QTc Int : 471 ms Normal sinus rhythm T wave abnormality, consider anterolateral ischemia vs evolving anterior ID Prolonged QT Abnormal ECG When compared with ECG of 21-AUG-2023 08:38, (unconfirmed) ST no longer elevated in Anterior leads T wave inversion now evident in Anterior leads Confirmed by Mega Mcdowell ([id number]) on 08/23/2023 3:22:07 PM Referred By: Gal Chong Confirmed By:Shubham Mcdowell
--- NOTE | 2023-08-23 15:24 | Electrocardiogram Report ---
Test Reason : Blood Pressure : / mmHG Vent. Rate : 090 BPM Atrial Rate : 090 BPM P-R Int : 128 ms QRS Dur : 090 ms QT Int : 390 ms P-R-T Axes : 037 021 013 degrees QTc Int : 477 ms Poor data quality, interpretation may be adversely affected Normal sinus rhythm Low voltage QRS ST elevation consider anterior injury or acute infarct ACUTE AR / STEMI Abnormal ECG When compared with ECG of 21-AUG-2023 08:31, ST elevation now present in Anterior leads T wave inversion no longer evident in Anterior leads Confirmed by Mega Mcdowell ([id number]) on 08/23/2023 3:24:09 PM Referred By: Gal Chong Confirmed By:Shubham Mcdowell
--- NOTE | 2023-08-23 15:36 | XCELERA ---
[id number]
[2023-08-23] MEDS ORDERED: METOPROLOL TARTRATE 50 MG TAB PO SCH (21:00)
[2023-08-24] MEDS ORDERED: CLOPIDOGREL BISULFATE 75 MG TAB PO SCH (09:00)
== END 2023-08-23 12:05 | disposition home or self-care (01) | DRG 322 ==
LOC: ED 07:29 → 2S 09:13 → SUATTDRO 09:39 → 2S 09:39

== ENCOUNTER 2025-03-16 07:50 | Inpatient (IN) ==
--- NOTE | 2025-03-16 08:16 | Emergency Department Note ---
Impression & Plan Pulmonary embolism and infarction, Right-sided chest pain, Hypertension ED Provider Note NAME: GIUSEPPE BYRD AGE: 65 SEX: F : 1960 ARRIVES VIA: Walk-In INFORMANT: Patient ED PROVIDER(S): Ted Joseph MD CHIEF COMPLAINT: Right lower chest, right upper abdominal pain PLAN: Disposition: Admit MEDICAL DECISION MAKING: The patient is a 65-year-old woman with a past medical history of CAD with history of PCI who presents to the emergency department via walk-in, accompanied by her for evaluation of right lower chest/right upper abdominal pain that is worse with breathing and movement which began as an achy yesterday and worsened over night with associated nausea. Patient reports feeling unwell/ill over the past couple of days but denies cough or congestion. She denies vomiting or diarrhea. Denies urinary symptoms. On evaluation the patient is no acute distress, afebrile with blood pressure 190/100s with heart rate in the 80s and O2 saturation 96% on room air with normal respiratory effort. Abdomen is nontender. EKG without overt acute ischemia. CXR negative for acute cardiopulmonary process per my personal preliminary review/interpretation. WBC, H/H and platelets within normal limits. Chemistry without metabolic acidosis. Electrolytes LFTs unremarkable. High-sensitivity troponin 3.8, within normal limits. Lipase is normal. UA without convincing evidence of infection with epithelial cells present. CTA of the chest was completed and demonstrates significant amount of pulmonary emboli in the right main pulmonary artery extending into the segmental and subsegmental branches within the right upper and lower lobes. Suggestion of right heart strain with straightening of the ventricular septum though patient's troponin was normal and patient is hemodynamically stable. Possible developing pulmonary infarction is noted. CT of the abdomen pelvis was negative for acute intra-abdominal process. Findings reviewed the patient and her at the bedside and they do agree with plan for admission for further management. Patient denies any recent surgery or immobility and so hypercoagulable panel was ordered. Treatment- initiated with IV heparin bolus and drip. Case was discussed with Dr. Andrews, [facility] [place] hospitalist, who will evaluate the patient for admission. Further management per admitting team. Triage Nursing notes reviewed and agree them. Prior/external medical records reviewed Vital Signs: reviewed Differential diagnosis: Cardiac ischemia, aortic dissection, pulmonary embolism, pneumothorax, pneumonia, pericarditis, myocarditis, esophageal rupture, GERD, cholecystitis, pancreatitis, musculoskeletal, as well as other pathologies. ER treatment provided: See below. Diagnostics interpreted by me: ECG: Normal sinus rhythm, 78 bpm, no ectopy, nonspecific T wave abnormality, no overt ST elevation or depression, QTc 437, QRS 72 Cardiac Monitoring: An order for continuous cardiac monitoring was placed and demonstrated normal sinus rhythm, 78 bpm, no ectopy. Laboratory studies: See below Imaging studies: See below Consultation(s): Dr. Andrews [facility] [place] hospitalist HPI: Per MDM. ROS: See above HPI for pertinent positives & negatives. A total of 10 systems reviewed and were otherwise negative. VITALS:See Below PHYSICAL EXAMINATION: GENERAL: Awake, alert, in no distress, BMI 34.1. HENT: Normocephalic, atraumatic. Oropharynx with dry mucous membranes and otherwise unremarkable. . EYES: Normal conjunctiva. Sclera non-icteric. NECK: Supple. No nuchal rigidity. FROM. No JVD. RESPIRATORY: Clear to auscultation. CARDIAC: Regular rate, normal rhythm. Extremities warm and well perfused. Pulses equal. ABDOMEN: Soft, non-distended. No tenderness to palpation. No rebound or guarding. No masses. MUSCULOSKELETAL: Chest examination reveals no tenderness. The back is symmetrical on inspection without obvious abnormality. There is no CVA tenderness to palpation. No joint edema. LOWER EXTREMITIES: Calves are equal size bilaterally and non-tender. No edema. No discoloration. NEURO: Normal sensorium. No sensory or motor deficits noted. SKIN: No rash or jaundice noted. ED COURSE: Critical Care: I have personally spent greater than 35 minutes of critical care time in the direct management of this patient. This includes bedside care, interpretation of diagnostic studies, and testing, discussion with consultants, patient, and family members, and other required patient management activities. This 35 minutes is in excess of all separately billable procedures. Ted Joseph MD Past Med/Surg History Problem List (Updated 03/18/25 @ 23:30 by Ted Joseph MD) Right-sided chest pain (Acute) Pulmonary hypertension Pulmonary embolism and infarction (Acute) Venous insufficiency ST elevation (STEMI) myocardial infarction (Acute) Osteoarthritis of right knee S/P rotator cuff repair Encounter for pre-operative examination Hypertension (Acute) Increased intraocular pressure (Acute) Acute conjunctivitis (Acute) Medical History Dyslipidemia CAD (coronary artery disease) NSAID sensitivity Hypertension History of high blood pressure RECENTLY BEEN GOOD, SOMETIMES MELOXICAM WILL DRIVE IT UP PER PT Rapid heart beat METOPROLOL FOR Migraines Arthritis Surgical History History of breast surgery LEFT/HAD BLOCKAGE IN DUCT - MARKER PRESENT H/O dilation and curettage S/P tubal ligation HX S/P tonsillectomy HX S/P laparoscopic procedure HX sling operation for stress incontinence Family History Mother Alzheimer disease Father Parkinson disease Social History Smoking Status: Never smoker Second Hand Exposure: No; Do You Dip or Chew Tobacco: No; Hx Alcohol Use: No Hx Substance Use: No Preferred Language: Malian Communication Ability: Effective Residential Construction Instructor Required: No Beliefs That Will Affect Care: None Current Living Situation: Spouse Feels Safe at Home: Yes Assistive Devices: Cane Allergies Allergies Allergy/AdvReac Type Severity Reaction Status Date / Time naproxen Allergy Unknown Hives Verified 12/13/24 16:15 Penicillins Allergy Unknown hives Verified 12/13/24 16:15 sulindac [From Clinoril] Allergy Unknown Hives Verified 12/13/24 16:15 Home Meds Home Medications Medication Instructions Recorded Confirmed diclofenac sodium 1 % topical gel 2 g topical UD PRN Pain 07/11/20 03/16/25 ezetimibe 10 mg tablet (Zetia) 0 mg PO DAILY 12/13/24 03/16/25 metoprolol succinate 25 mg 50 mg PO HS 12/13/24 03/16/25 tablet,extended release 24 hr rosuvastatin 40 mg tablet 40 mg PO DAILY 12/13/24 03/16/25 valsartan 80 mg tablet 160 mg PO BID 12/13/24 03/16/25 pantoprazole 40 mg tablet,delayed 40 mg PO DAILY 03/16/25 03/16/25 release Previous Rx's Medication Instructions Recorded aspirin 81 mg tablet,delayed 81 mg PO QAM #0 tabs 08/23/23 release apixaban 5 mg tablet (Eliquis) 5 mg PO BID #54 tabs 03/18/25 oxycodone-acetaminophen 5 mg-325 1 tab PO Q6H PRN pain #20 tabs 03/18/25 mg tablet (Percocet) Results & Data (ED) Vital Signs Vital Signs - 24 hr 03/16/25 07:57 03/16/25 08:05 03/16/25 08:05 Temperature 36.9 C Temperature Source Temporal Artery Scan Pulse Rate 81 72 Pulse Rate [Apical] 77 Respiratory Rate 18 18 20 Respiratory Effort / Characteristics Non-Labored Spontaneous Non-Labored Spontaneous Respiratory Depth Normal Normal Respiratory Pattern Regular Regular Blood Pressure 194/104 H Blood Pressure [Left Arm] 158/96 H Blood Pressure Mean 134 Blood Pressure Mean [Left Arm] 116 Blood Pressure Position [Left Arm] Sitting Pulse Oximetry 96 95 96 Oxygen Delivery Method Room Air Room Air Room Air Sepsis Recent Fever Within 48 Hours No Sepsis New/Unexplained Change in Mental Status N/A Sepsis Action Taken by Nursing No Action Required 03/16/25 08:23 03/16/25 09:46 03/16/25 11:12 Temperature Temperature Source Pulse Rate 74 Pulse Rate [Apical] 71 72 Respiratory Rate 20 18 Respiratory Effort / Characteristics Non-Labored Spontaneous Respiratory Depth Normal Respiratory Pattern Regular Blood Pressure Blood Pressure [Left Arm] 162/96 H 137/108 H Blood Pressure Mean Blood Pressure Mean [Left Arm] 118 117 Blood Pressure Position [Left Arm] Sitting Pulse Oximetry 97 97 Oxygen Delivery Method Room Air Sepsis Recent Fever Within 48 Hours Sepsis New/Unexplained Change in Mental Status Sepsis Action Taken by Nursing Laboratory Data Attestation: I reviewed the patient's lab results. 03/17/25 01:32 03/17/25 01:32 Lab Results 03/16/25 03/16/25 Range/Units 08:15 11:52 WBC 6.82 (4.8-10.8) K/ul RBC 5.13 (4.20-5.40) M/uL Hgb 15.3 (12.0-16.0) g/dL Hct 45.7 (37.0-47.0) % MCV 89.1 (80.0-100.0) fL MCH 29.8 (25.0-34.0) pg MCHC 33.5 (32.0-36.0) g/dL RDW Std Deviation 41.4 (36.4-46.3) fL RDW Coeff of Rossy 12.6 (11.5-14.5) % Plt Count 204 (130-400) K/uL MPV 9.5 (9.4-12.4) fL Immature Gran % (Auto) 0.1 % Neut % (Auto) 78.5 % Lymph % (Auto) 12.9 % Piatt % (Auto) 7.9 % Eos % (Auto) 0.3 % Baso % (Auto) 0.3 % Neut # (Auto) 5.35 (1.40-6.50) K/uL Lymph # (Auto) 0.88 L (1.20-3.40) K/uL Piatt # (Auto) 0.54 (0.11-0.59) K/uL Eos # (Auto) 0.02 (0.00-0.50) K/uL Baso # (Auto) 0.02 (0.00-0.20) K/uL Immature Gran # (Auto) 0.01 (0.01-0.20) K/uL PT 10.7 (9.0-12.0) Seconds INR 1.0 (0.9-1.1) Sodium 137 (136-145) mmol/L Potassium 3.8 (3.5-5.1) mmol/L Chloride 103 (98-107) mmol/L Carbon Dioxide 27 (21-32) mmol/L Anion Gap 7 (3-11) BUN 18 (6-23) mg/dl Creatinine 0.70 (0.6-1.2) mg/dl Est Cr Clr Drug Dosing 84.7 ml/min eGFR 94.73 BUN/Creatinine Ratio 25.7 H (10-20) Glucose 138 H (70-99(Fasting)) mg/dl Calcium 9.1 (8.6-10.3) mg/dl Magnesium 2.0 (1.7-2.4) mg/dl Total Bilirubin 1.0 (0.2-1.0) mg/dl Direct Bilirubin 0.1 (0-0.2) mg/dl AST 14 (13-39) U/L ALT 12 (7-52) U/L Alkaline Phosphatase 79 (34-104) U/L Troponin I High Sens 3.8 (0-14) pg/ml B-Natriuretic Peptide 97 (0-100) pg/ml Total Protein 7.4 (6.0-8.3) gm/dl Albumin 4.3 (3.4-5.0) gm/dl Globulin 3.1 (2.5-4.0) gm/dl Albumin/Globulin Ratio 1.4 (0.9-2) Lipase 15 (11-82) U/L Urine Color Yellow Urine Appearance Clear (Clear) Urine pH 5.5 (4.5-7.5) Ur Specific [place] 1.022 (1.000-1.030) Urine Protein Trace H (Negative) Urine Glucose (UA) Negative (Negative) Urine Ketones Trace H (Negative) Urine Blood 2+ H (Negative) Urine Nitrite Negative (Negative) Urine Bilirubin Negative (Negative) Urine Urobilinogen Negative (Negative) Ur Leukocyte Esterase 1+ H (Negative) Urine WBC (Auto) 0-5 (0-5) /hpf Urine RBC (Auto) 11-20 H (0-2) /hpf U Hyaline Cast (Auto) 0-2 (0-2) /lpf U Epithel Cells (Auto) 3-5 H (0-2) /hpf Urine Bacteria (Auto) None Seen (None Seen) Urine Comment Administered Medications Discontinued Medications Acetaminophen (Acetaminophen 325 Mg Tab) 650 mg PO Q4H PRN PRN Reason: Pain or Fever Stop: 04/15/25 14:39 Last Admin: 03/17/25 19:34 Dose: 650 mg Documented By: Admin: 03/17/25 07:39 Dose: 650 mg Documented By: Admin: 03/16/25 14:53 Dose: 650 mg Documented By: Apixaban (Apixaban 5 Mg Tablet) 10 mg PO BID [facility] Stop: 03/24/25 09:01 Last Admin: 03/18/25 08:07 Dose: 10 mg Documented By: leonel Admin: 03/17/25 20:38 Dose: 10 mg Documented By: BARBI Aspirin (Aspirin 81 Mg Ectab) 81 mg PO NOW [facility] Stop: 03/16/25 12:29 Last Admin: 03/16/25 13:12 Dose: 81 mg Documented By: MAHENDRA Aspirin (Aspirin 81 Mg Ectab) [facility] Stop: 04/16/25 08:59 Last Admin: 03/18/25 08:07 Dose: 81 mg Documented By: leonel Admin: 03/17/25 07:46 Dose: 81 mg Documented By: ZAINA Diclofenac Sodium (Diclofenac Sod 1% Gel 100 Gm Tube) 2 gm EXT QID PRN; Protocol PRN Reason: Pain Stop: 04/15/25 14:39 Last Admin: 03/16/25 15:06 Dose: 2 gm Documented By: Ezetimibe (Ezetimibe 10 Mg Tab) 10 mg PO ONE ONE Stop: 03/16/25 12:30 Last Admin: 03/16/25 13:12 Dose: 10 mg Documented By: MAHENDRA Ezetimibe (Ezetimibe 10 Mg Tab) 10 mg PO DAILY [facility] Stop: 04/16/25 08:59 Last Admin: 03/18/25 08:06 Dose: 10 mg Documented By: leonel Admin: 03/17/25 07:47 Dose: 10 mg Documented By: ZAINA Heparin Sodium (Porcine) (Heparin Sod (Porcine) 1000 Unit/Ml) 5,000 units IV NOW ONE Stop: 03/16/25 11:31 Last Admin: 03/16/25 11:52 Dose: 5,000 units Documented By: OLWELL Co-signed By: Sodium Chloride (Nss) 1,000 mls @ 999 mls/hr IV .Q1H1M STA Stop: 03/16/25 09:05 Last Infusion: 03/16/25 09:40 Dose: Infused Documented By: Admin: 03/16/25 08:19 Dose: 999 mls/hr Documented By: MAHENDRA Famotidine (Pepcid 20mg Iv Push) 20 mg in 5 mls @ 2.5 mls/min IV NOW STA Stop: 03/16/25 08:16 Last Admin: 03/16/25 08:19 Dose: 2.5 mls/min Documented By: MAHENDRA Acetaminophen (Ofirmev) 1,000 mg in 100 mls @ 400 mls/hr IV NOW STA Stop: 03/16/25 08:29 Last Infusion: 03/16/25 08:51 Dose: Infused Documented By: Admin: 03/16/25 08:19 Dose: 400 mls/hr Documented By: MAHENDRA Heparin Sodium/Dextrose (Heparin 67579 Unit/500 Ml D5w) 25,000 units in 500 mls @ 24 mls/hr IV .[id number] [facility]; Protocol Stop: 04/15/25 11:14 Last Titration: 03/17/25 15:09 Dose: Infused Documented By: ZAINA Co-signed By: JOSELUIS Admin: 03/17/25 07:40 Dose: 1,200 units/hr, 24 mls/hr Documented By: ZAINA Co-signed By: TRUDY Titration: 03/17/25 07:40 Dose: Infused Documented By: ZAINA Co-signed By: TRUDY Titration: 03/17/25 07:01 Dose: 1,200 units/hr, 24 mls/hr Documented By: GTBrice Co-signed By: ZAINA Titration: 03/17/25 02:54 Dose: 1,200 units/hr, 24 mls/hr Documented By: ESTER Co-signed By: CECIL Titration: 03/16/25 19:21 Dose: 1,200 units/hr, 24 mls/hr Documented By: ESTER Co-signed By: CECIL Admin: 03/16/25 11:52 Dose: 1,250 units/hr, 25 mls/hr Documented By: LOWELL Co-signed By: Ioversol (Optiray 320 125ml) 120 ml IV ONCE ONE Stop: 03/16/25 09:25 Last Admin: 03/16/25 09:25 Dose: 120 ml Documented By: BRKamilla Melatonin (Melatonin 3 Mg Tab) 3 mg PO HS PRN PRN Reason: Sleep Stop: 04/15/25 14:39 Last Admin: 03/16/25 20:19 Dose: 3 mg Documented By: GTBrice Metoprolol Succinate (Metoprolol Succ 50mg Ext Rel Tab) 50 mg PO HS JAC Stop: 04/15/25 20:59 Last Admin: 03/17/25 20:38 Dose: 50 mg Documented By: Admin: 03/16/25 20:21 Dose: 50 mg Documented By: GTBrice Morphine Sulfate (Morphine Sulfate 2 Mg/Ml Carp) 2 mg IV Q4H PRN PRN Reason: Moderate Pain (Scale 4, 5, 6) Stop: 03/30/25 14:39 Last Admin: 03/16/25 20:19 Dose: 2 mg Documented By: GTBrice Ondansetron HCl (Ondansetron Inj 2 Mg/Ml 2 Ml Vial) 4 mg IV NOW STA Stop: 03/16/25 08:16 Last Admin: 03/16/25 08:19 Dose: 4 mg Documented By: MAHENDRA Ondansetron HCl (Ondansetron Inj 2 Mg/Ml 2 Ml Vial) 4 mg IV Q6H PRN PRN Reason: Nausea Stop: 04/15/25 14:39 Last Admin: 03/17/25 07:39 Dose: 4 mg Documented By: ZAINA Oxycodone/Acetaminophen (Oxycodone/Acetaminophen 5mg/325mg Tab) 1 tab PO Q4H PRN PRN Reason: Pain Stop: 03/31/25 18:19 Last Admin: 03/18/25 08:06 Dose: 1 tab Documented By: leonel Pantoprazole Sodium (Pantoprazole 40 Mg Tab) 40 mg PO DAILY [facility] Stop: 04/16/25 08:59 Last Admin: 03/18/25 08:07 Dose: 40 mg Documented By: leonel Admin: 03/17/25 07:46 Dose: 40 mg Documented By: ZAINA Polyethylene Glycol (Polyethylene (Miralax) 17 Gm Pack) 17 gm PO DAILY PRN PRN Reason: Constipation Stop: 04/15/25 14:39 Last Admin: 03/18/25 08:06 Dose: 17 gm Documented By: leonel Admin: 03/17/25 16:14 Dose: 17 gm Documented By: ZAINA Rosuvastatin Calcium (Rosuvastatin Calcium 20 Mg Tab) 40 mg PO ONE ONE Stop: 03/16/25 12:29 Last Admin: 03/16/25 13:12 Dose: 40 mg Documented By: MAHENDRA Rosuvastatin Calcium (Rosuvastatin Calcium 20 Mg Tab) 40 mg PO DAILY [facility] Stop: 04/16/25 08:59 Last Admin: 03/18/25 08:07 Dose: 40 mg Documented By: leonel Admin: 03/17/25 07:47 Dose: 40 mg Documented By: ZAINA Valsartan (Valsartan 80 Mg Tab) 160 mg PO BID JAC Stop: 04/15/25 20:59 Last Admin: 03/18/25 08:06 Dose: 160 mg Documented By: leonel Admin: 03/17/25 20:38 Dose: 160 mg Documented By: Admin: 03/17/25 07:47 Dose: 160 mg Documented By: Admin: 03/16/25 20:21 Dose: 160 mg Documented By: [facility] Imaging Data Radiologist's Impression: Venous Doppler Study 03/16/25 11:02 BILATERAL LOWER EXTREMITY VENOUS DOPPLER HISTORY: extensive DVT,recent venous ablation COMPARISON STUDY: Duplex venous Doppler study 01/12/2025. FINDINGS: There is normal compressibility, flow, and augmentation within the bilateral lower extremity deep venous systems. The right greater saphenous vein is not well-visualized. IMPRESSION: No DVT within the right or left lower extremity. ACT 112: Negative or not required by law. Electronically signed by: Ty Mazariegos M.D. 03/16/2025 3:03 PM Chest X-Ray 03/16/25 08:05 XR chest 1V portable HISTORY: 65 years-old Female Chest pain, nonspecific COMPARISON: 08/21/2023 TECHNIQUE: AP view of the chest FINDINGS: Cardiac silhouette is upper limits of normal in size. Unchanged mild blunting of the lateral costophrenic angles. No pneumothorax, or overt pulmonary edema or lobar airspace consolidation. A coronary arterial stent is noted. The bones of the chest appear grossly intact. IMPRESSION: No acute process. ACT 112: Negative or not required by law. The above report was generated using voice recognition software. It may contain grammatical, syntax or spelling errors. Electronically signed by: Ty Mazairegos M.D. 03/16/2025 8:53 AM Abdomen/Pelvis CT 03/16/25 08:43 CT angio chest PE protocol, CT abd pelvis IV con only CT DOSE: 2202.89 mGy.cm HISTORY: 65 years-old Female with right cp with inspiration, r/o PE. Acute shortness of breath with chest pain TECHNIQUE: Multiple CTA images of the chest were obtained after the intravenous administration of 120 ml Optiray. Coronal and sagittal MIPS were obtained from the axial data set and were submitted for review. CT abdomen and pelvis with IV contrast only also obtained. All measurements were obtained according to NASCET criteria. A dose lowering technique was utilized adhering to the principles of ALARA. COMPARISON: None. FINDINGS: CTA: Heart is mildly enlarged. Moderate coronary artery calcifications. Mild atherosclerosis of the thoracic aorta without aneurysm or dissection. Significant amount of pulmonary emboli are noted in the right main pulmonary artery extending into segmental and subsegmental branches within the right upper and lower lobes. Mild straightening of the intraventricular septum. CT CHEST: Unremarkable thyroid. No pathologically enlarged lymph nodes. Trace right pleural effusion. No pneumothorax. Mild bibasilar atelectasis, right greater than left. Possible developing basilar right lower lobe pulmonary infarct. Central airways are patent. There are no suspicious pulmonary nodule or mass is identified. Distal esophageal wall thickening with small hiatal hernia. Unremarkable soft tissues. No acute fracture. CT ABDOMEN AND PELVIS: No pneumatosis or pneumoperitoneum. Unremarkable spleen, pancreas, and adrenal glands. Probable fundal adenomyomatosis of the gallbladder. There are a few cysts of the liver measuring up to approximately 2 cm. Patency of the hepatic and portal veins. Bilateral renal sinus cysts with exophytic cyst of the superior pole left kidney measuring 3.6 cm. Unremarkable urinary bladder. Atherosclerosis of the aorta without aneurysm. No lymphadenopathy. Colonic diverticulosis without acute diverticulitis. There is no bowel obstruction or bowel wall thickening identified. Normal appendix. Tiny fat filled umbilical and suprapubic umbilical hernias. There is no acute fracture identified. IMPRESSION: 1. Large amount of right-sided pulmonary emboli with probable right heart strain. 2. Trace right pleural effusion with bibasilar atelectasis and possible developing right lower lobe pulmonary infarct. 3. Small hiatal hernia. 4. No acute intra-abdominal or intrapelvic abnormality. ACT 112: Negative or not required by law. The above report was generated using voice recognition software. It may contain grammatical, syntax or spelling errors. Electronically signed by: Ty Mazariegos M.D. 03/16/2025 10:14 AM Chest CTA 03/16/25 08:43 CT angio chest PE protocol, CT abd pelvis IV con only CT DOSE: 2202.89 mGy.cm HISTORY: 65 years-old Female with right cp with inspiration, r/o PE. Acute shortness of breath with chest pain TECHNIQUE: Multiple CTA images of the chest were obtained after the intravenous administration of 120 ml Optiray. Coronal and sagittal MIPS were obtained from the axial data set and were submitted for review. CT abdomen and pelvis with IV contrast only also obtained. All measurements were obtained according to NASCET criteria. A dose lowering technique was utilized adhering to the principles of ALARA. COMPARISON: None. FINDINGS: CTA: Heart is mildly enlarged. Moderate coronary artery calcifications. Mild atherosclerosis of the thoracic aorta without aneurysm or dissection. Significant amount of pulmonary emboli are noted in the right main pulmonary artery extending into segmental and subsegmental branches within the right upper and lower lobes. Mild straightening of the intraventricular septum. CT CHEST: Unremarkable thyroid. No pathologically enlarged lymph nodes. Trace right pleural effusion. No pneumothorax. Mild bibasilar atelectasis, right greater than left. Possible developing basilar right lower lobe pulmonary infarct. Central airways are patent. There are no suspicious pulmonary nodule or mass is identified. Distal esophageal wall thickening with small hiatal hernia. Unremarkable soft tissues. No acute fracture. CT ABDOMEN AND PELVIS: No pneumatosis or pneumoperitoneum. Unremarkable spleen, pancreas, and adrenal glands. Probable fundal adenomyomatosis of the gallbladder. There are a few cysts of the liver measuring up to approximately 2 cm. Patency of the hepatic and portal veins. Bilateral renal sinus cysts with exophytic cyst of the superior pole left kidney measuring 3.6 cm. Unremarkable urinary bladder. Atherosclerosis of the aorta without aneurysm. No lymphadenopathy. Colonic diverticulosis without acute diverticulitis. There is no bowel obstruction or bowel wall thickening identified. Normal appendix. Tiny fat filled umbilical and suprapubic umbilical hernias. There is no acute fracture identified. IMPRESSION: 1. Large amount of right-sided pulmonary emboli with probable right heart strain. 2. Trace right pleural effusion with bibasilar atelectasis and possible developing right lower lobe pulmonary infarct. 3. Small hiatal hernia. 4. No acute intra-abdominal or intrapelvic abnormality. ACT 112: Negative or not required by law. The above report was generated using voice recognition software. It may contain grammatical, syntax or spelling errors. Electronically signed by: Ty Mazariegos M.D. 03/16/2025 10:14 AM Venous Doppler Study 03/16/25 11:02 BILATERAL LOWER EXTREMITY VENOUS DOPPLER HISTORY: extensive DVT,recent venous ablation COMPARISON STUDY: Duplex venous Doppler study 01/12/2025. FINDINGS: There is normal compressibility, flow, and augmentation within the bilateral lower extremity deep venous systems. The right greater saphenous vein is not well-visualized. IMPRESSION: No DVT within the right or left lower extremity. ACT 112: Negative or not required by law. Electronically signed by: Ty Mazariegos M.D. 03/16/2025 3:03 PM Discharge Plan Visit Data Chief Complaint: Abdominal Pain Stated Complaint: NAUSEA, SOB, RIGHT SIDE PAIN ED Provider: Ted Joseph Discharge Problem: Pulmonary embolism and infarction, Right-sided chest pain, Hypertension Patient Disposition: Admitted As Inpatient Condition: Fair Discharge Instructions Interventions: ED Discharge Assessment Last Done: 03/16/25 14:15 Discharge Problem: Hypertension Qualifiers: Hypertension type: unspecified Qualified Code(s): I10 - Essential (primary) hypertension
[2025-03-16] MEDS: ONDANSETRON INJ 2 MG/ML 2 ML VIAL IV STA (08:19)
[2025-03-16] MEDS: FAMOTIDINE 20MG IV PUSH 20 MG/5 ML SYR IV STA (08:19)
[2025-03-16] MEDS: SODIUM CHLORIDE 0.9% 1,000 ML IV STA (08:19)
[2025-03-16] MEDS: ACETAMINOPHEN 1,000 MG/100 ML VIAL IV STA (08:19)
[2025-03-16 08:36] LABS: Hematocrit (blood only) 45.7 % (37.0-47.0); Hemoglobin 15.3 g/dL (12.0-16.0); Immature Granulocytes # (auto) 0.01 K/uL (0.01-0.20); Immature Granulocytes % (auto) 0.1 %; Mean Corpuscular Hemoglobin 29.8 pg (25.0-34.0); Mean Corpuscular Volume 89.1 fL (80.0-100.0); Platelet Count 204 K/uL (130-400); RDW Standard Deviation 41.4 fL (36.4-46.3); Red Blood Count 5.13 M/uL (4.20-5.40); White Blood Count 6.82 K/ul (4.8-10.8)
[2025-03-16 08:42] LABS: Appearance Urine Clear (Clear); Bacteria Urine Automated None Seen (None Seen); Cast Urine Automated 0-2 /lpf (0-2); Glucose Urine UA Negative (Negative); WBC Urine Automated 0-5 /hpf (0-5)
[2025-03-16 08:52] LABS: Alanine Aminotransferase 12.0 U/L (7-52); Albumin Globulin Ratio 1.4 (0.9-2); Albumin Level 4.3 gm/dl (3.4-5.0); Alkaline Phosphatase 79.0 U/L (34-104); Anion Gap 7.0 (3-11); Bilirubin,Total 1.0 mg/dl (0.2-1.0); Blood Urea Nitrogen 18.0 mg/dl (6-23); Calcium 9.1 mg/dl (8.6-10.3); Carbon Dioxide 27.0 mmol/L (21-32); Chloride 103.0 mmol/L (98-107); Creatinine Clr Calc Pharmacy 84.7 ml/min; Globulin 3.1 gm/dl (2.5-4.0); Glucose 138.0 mg/dl (70-99(Fasting)); Lipase 15.0 U/L (11-82); Magnesium 2.0 mg/dl (1.7-2.4); Potassium 3.8 mmol/L (3.5-5.1); Sodium 137.0 mmol/L (136-145); Total Protein 7.4 gm/dl (6.0-8.3)
--- NOTE | 2025-03-16 08:54 | XRay Report ---
XR chest 1V portable HISTORY: 65 years-old Female Chest pain, nonspecific COMPARISON: 08/21/2023 TECHNIQUE: AP view of the chest FINDINGS: Cardiac silhouette is upper limits of normal in size. Unchanged mild blunting of the lateral costophr enic angles. No pneumothorax, or overt pulmonary edema or lobar airspace consolidation. A coronary ar terial stent is noted. The bones of the chest appear grossly intact. IMPRESSION: No acute process. ACT 112: Negative or not required by law. The above report was generated using voice recognition software. It may contain grammatical, syntax o r spelling errors. Electronically signed by: Ty Mazariegos M.D. 03/16/2025 8:53 AM
[2025-03-16 09:01] LABS: INR 1.0 (0.9-1.1); Prothrombin Time 10.7 Seconds (9.0-12.0)
[2025-03-16] MEDS: OPTIRAY 320 125ml IV ONE (09:25)
--- NOTE | 2025-03-16 09:59 | Electrocardiogram Report ---
Test Reason : Blood Pressure : */* mmHG Vent. Rate : 78 BPM Atrial Rate : 78 BPM P-R Int : 156 ms QRS Dur : 72 ms QT Int : 384 ms P-R-T Axes : 31 8 32 degrees QTcB Int : 437 ms Normal sinus rhythm Nonspecific T wave abnormality Abnormal ECG When compared with ECG of 23-Aug-2023 09:45, T wave inversion no longer evident in Anterolateral leads Confirmed by Stephen Peterson ([id number]) on 03/16/2025 9:58:48 AM Referred By: REFERRED SELF Confirmed By: Stephen Peterson
--- NOTE | 2025-03-16 10:16 | CT Scan Report ---
CT angio chest PE protocol, CT abd pelvis IV con only CT DOSE: 2202.89 mGy.cm HISTORY: 65 years-old Female with right cp with inspiration, r/o PE. Acute shortness of breath with chest pain TECHNIQUE: Multiple CTA images of the chest were obtained after the intravenous administration of 120 ml Optiray. Coronal and sagittal MIPS were obtained from the axial data set and were submitted for review. CT abdomen and pelvis with IV contrast only also obtained. All measurements were obtained ac cording to NASCET criteria. A dose lowering technique was utilized adhering to the principles of RICK Palacios. COMPARISON: None. FINDINGS: CTA: Heart is mildly enlarged. Moderate coronary artery calcifications. Mild atherosclerosis of the thorac ic aorta without aneurysm or dissection. Significant amount of pulmonary emboli are noted in the righ t main pulmonary artery extending into segmental and subsegmental branches within the right upper and lower lobes. Mild straightening of the intraventricular septum. CT CHEST: Unremarkable thyroid. No pathologically enlarged lymph nodes. Trace right pleural effusion. No pneumo thorax. Mild bibasilar atelectasis, right greater than left. Possible developing basilar right lower lobe pulmonary infarct. Central airways are patent. There are no suspicious pulmonary nodule or mass is identified. Distal esophageal wall thickening with small hiatal hernia. Unremarkable soft tissues. No acute fracture. CT ABDOMEN AND PELVIS: No pneumatosis or pneumoperitoneum. Unremarkable spleen, pancreas, and adrenal glands. Probable ceci l adenomyomatosis of the gallbladder. There are a few cysts of the liver measuring up to approximatel y 2 cm. Patency of the hepatic and portal veins. Bilateral renal sinus cysts with exophytic cyst of t he superior pole left kidney measuring 3.6 cm. Unremarkable urinary bladder. Atherosclerosis of the a divine without aneurysm. No lymphadenopathy. Colonic diverticulosis without acute diverticulitis. There is no bowel obstruction or bowel wall thickening identified. Normal appendix. Tiny fat filled umbili laura and suprapubic umbilical hernias. There is no acute fracture identified. IMPRESSION: 1. Large amount of right-sided pulmonary emboli with probable right heart strain. 2. Trace right pleural effusion with bibasilar atelectasis and possible developing right lower lobe p ulmonary infarct. 3. Small hiatal hernia. 4. No acute intra-abdominal or intrapelvic abnormality. ACT 112: Negative or not required by law. The above report was generated using voice recognition software. It may contain grammatical, syntax o r spelling errors. Electronically signed by: Ty Mazariegos M.D. 03/16/2025 10:14 AM
[2025-03-16] MEDS ORDERED: Heparin IV Adult Wt-Based Standard w/ INITIAL Bolus Protocol IV STA (10:54)
--- NOTE | 2025-03-16 11:01 | History & Physical Report ---
Date of Service March 16, 2025 Assessment & Plan (1) Pulmonary embolism and infarction: (2) CAD (coronary artery disease): (3) Hypertension: Plan This patient is a 65-year-old female with a history of HTN, CAD s/p STEMI with MANNY to mid LAD and LV thrombus, venous reflux with bilateral GSV ablations, migraines, OA, obesity, and GERD, who presents to the ED with right sided chest pain and difficulty getting a deep breath worsening over the last 3 days. She felt congested in the chest but was not really coughing up any sputum. No fevers or chills. Denies any leg swelling or pain. She was found to have extensive pulmonary emboli on the right with possible pulmonary infarct and evidence of right heart strain on CT angiogram of the chest. She was hypertensive but not hypoxic, not tachycardic. Her laboratory values were all normal including a troponin. She had her left venous ablation done in January and it appears she was scheduled for follow-up with vascular medicine on 03/19. She has never had a clot before except for the LV clot related to a STEMI in the past and was on Eliquis at that time. She was started on a heparin drip in the ED and will be admitted for acute pulmonary emboli. #Pulmonary emboli/pulmonary infarct-potentially provoked by sedentary lifestyle more so in the last 1 to 2 months due to her 's chronic illness-she sits next to them a lot through the day. Also with recent venous ablation 2 months prior but did have negative venous Doppler 2 days postoperative from that. No previous history of VTE and no history of issues with bleeding. With right heart strain on CT, but troponin negative, BNP negative, not hypotensive or hypoxic or tachycardic-no indication for thrombolysis. With developing pulmonary infarct - Admit to PCU for telemetry monitoring - Continue heparin drip and follow anti-Xa levels-eventually convert to DOAC after a few days on heparin - Check lower extremity venous Dopplers - Check echocardiogram for right heart strain - Closely monitor heart rate, pulse ox, and blood pressures for decompensation - IV morphine as needed for moderate to severe pain and Tylenol for mild pain #CAD s/p STEMI/MANNY to mid LAD/history of LV thrombus/HTN/HLD-no acute issues, has not had any angina recently. Was on Eliquis for a few months for LV thrombus but has been off of it. BPs here are actually elevated. ECG without ischemic changes. - Continue home valsartan, rosuvastatin, aspirin, Toprol-XL, Zetia - Checking echo #GERD-no acute issues - Continue PPI #Migraine headaches-no acute issues #OA-no acute issues, gets injections into her knee, follows with orthopedics - Continue Voltaren gel 4 times daily as needed DVT prophylaxis-heparin drip Disposition-admit to PCU History of Present Illness Chief Complaint: Shortness of breath, right sided chest pain Primary Care Provider: Gee Champion This patient is a 65-year-old female with a history of HTN, CAD s/p STEMI with MANNY to mid LAD and LV thrombus, venous reflux with bilateral GSV ablations, migraines, OA, obesity, and GERD, who presents to the ED with right sided chest pain and difficulty getting a deep breath worsening over the last 3 days. She felt congested in the chest but was not really coughing up any sputum. No fevers or chills. Denies any leg swelling or pain. She was found to have extensive pulmonary emboli on the right with possible pulmonary infarct and evidence of right heart strain on CT angiogram of the chest. She was hypertensive but not hypoxic, not tachycardic. Her laboratory values were all normal including a troponin. She had her left venous ablation done in January and it appears she was scheduled for follow-up with vascular medicine on 03/19. She has never had a clot before except for the LV clot related to a STEMI in the past and was on Eliquis at that time. She was started on a heparin drip in the ED and will be admitted for acute pulmonary emboli. Allergies Allergy/AdvReac Type Severity Reaction Status Date / Time naproxen Allergy Unknown Hives Verified 12/13/24 16:15 Penicillins Allergy Unknown hives Verified 12/13/24 16:15 sulindac [From Clinoril] Allergy Unknown Hives Verified 12/13/24 16:15 Home Medications Medication Instructions Recorded Confirmed Type diclofenac sodium 1 % topical gel 2 g topical UD PRN Pain 07/11/20 03/16/25 History aspirin 81 mg tablet,delayed 81 mg PO QAM #0 tabs 08/23/23 03/16/25 Rx release ezetimibe 10 mg tablet (Zetia) 0 mg PO DAILY 12/13/24 03/16/25 History metoprolol succinate 25 mg 50 mg PO HS 12/13/24 03/16/25 History tablet,extended release 24 hr rosuvastatin 40 mg tablet 40 mg PO DAILY 12/13/24 03/16/25 History valsartan 80 mg tablet 160 mg PO BID 12/13/24 03/16/25 History pantoprazole 40 mg tablet,delayed 40 mg PO DAILY 03/16/25 03/16/25 History release Past Med/Surg History Problem List (Updated 03/16/25 @ 11:46 by Corinne Andrews MD) Pulmonary embolism and infarction Venous insufficiency ST elevation (STEMI) myocardial infarction (Acute) Osteoarthritis of right knee S/P rotator cuff repair Encounter for pre-operative examination Hypertension Increased intraocular pressure (Acute) Acute conjunctivitis (Acute) Medical History Dyslipidemia CAD (coronary artery disease) NSAID sensitivity Hypertension History of high blood pressure RECENTLY BEEN GOOD, SOMETIMES MELOXICAM WILL DRIVE IT UP PER PT Rapid heart beat METOPROLOL FOR Migraines Arthritis Surgical History History of breast surgery LEFT/HAD BLOCKAGE IN DUCT - MARKER PRESENT H/O dilation and curettage S/P tubal ligation HX S/P tonsillectomy HX S/P laparoscopic procedure HX sling operation for stress incontinence Family History Mother Alzheimer disease Father Parkinson disease Social History Smoking Status: Never smoker Second Hand Exposure: No; Do You Dip or Chew Tobacco: No; Hx Alcohol Use: No Hx Substance Use: No Preferred Language: Tamazight Communication Ability: Effective Database Administration Project Manager Required: No Beliefs That Will Affect Care: None Current Living Situation: Spouse Feels Safe at Home: Yes Assistive Devices: None Review of Systems Review of Systems: All systems reviewed & are unremarkable except as noted in HPI & below Physical Exam Constitutional: WD/WN, vitals as above Eyes: PERRL, conjunctivae normal, anicteric sclerae ENMT: external ear and nose normal, oropharynx normal Neck: trachea midline, no thyromegaly Respiratory: normal respiratory effort, lungs clear to auscultation Cardiovascular: RRR, no murmur, no edema Chest (Breasts): Chest: normal inspection of chest Gastrointestinal (Abdomen): normal bowel sounds, soft, nontender, no hepatosplenomegaly Musculoskeletal: Extremities: extremities normal to inspection; no cyanosis and no clubbing Skin: no rashes, warm and dry Neurologic: moves all extremities and awake; no focal motor deficits Psychiatric: A+Ox3, euthymic affect Lymphatic: no lymphedema Results & Data Results & Data Vital Signs (Past 12 Hours) Vital Signs Temp Pulse Pulse Resp BP BP Pulse Ox 03/16/25 09:46 71 20 162/96 H 97 03/16/25 08:23 74 03/16/25 08:05 72 20 96 03/16/25 08:05 77 18 158/96 H 95 03/16/25 07:57 36.9 C 81 18 194/104 H 96 O2 Del Method 03/16/25 09:46 Room Air 03/16/25 08:23 03/16/25 08:05 Room Air 03/16/25 08:05 Room Air 03/16/25 07:57 Room Air Laboratory Results CBC, PT/INR, CMP, troponin, magnesium, lipase, UA reviewed Diagnostic Findings CT angiogram chest, CT A/P, and CXR reviewed Chest X-Ray 03/16/25 08:05 XR chest 1V portable HISTORY: 65 years-old Female Chest pain, nonspecific COMPARISON: 08/21/2023 TECHNIQUE: AP view of the chest FINDINGS: Cardiac silhouette is upper limits of normal in size. Unchanged mild blunting of the lateral costophrenic angles. No pneumothorax, or overt pulmonary edema or lobar airspace consolidation. A coronary arterial stent is noted. The bones of the chest appear grossly intact. IMPRESSION: No acute process. ACT 112: Negative or not required by law. The above report was generated using voice recognition software. It may contain grammatical, syntax or spelling errors. Electronically signed by: Ty Mazariegos M.D. 03/16/2025 8:53 AM Abdomen/Pelvis CT 03/16/25 08:43 CT angio chest PE protocol, CT abd pelvis IV con only CT DOSE: 2202.89 mGy.cm HISTORY: 65 years-old Female with right cp with inspiration, r/o PE. Acute shortness of breath with chest pain TECHNIQUE: Multiple CTA images of the chest were obtained after the intravenous administration of 120 ml Optiray. Coronal and sagittal MIPS were obtained from the axial data set and were submitted for review. CT abdomen and pelvis with IV contrast only also obtained. All measurements were obtained according to NASCET criteria. A dose lowering technique was utilized adhering to the principles of ALARA. COMPARISON: None. FINDINGS: CTA: Heart is mildly enlarged. Moderate coronary artery calcifications. Mild atherosclerosis of the thoracic aorta without aneurysm or dissection. Significant amount of pulmonary emboli are noted in the right main pulmonary artery extending into segmental and subsegmental branches within the right upper and lower lobes. Mild straightening of the intraventricular septum. CT CHEST: Unremarkable thyroid. No pathologically enlarged lymph nodes. Trace right pleural effusion. No pneumothorax. Mild bibasilar atelectasis, right greater than left. Possible developing basilar right lower lobe pulmonary infarct. Central airways are patent. There are no suspicious pulmonary nodule or mass is identified. Distal esophageal wall thickening with small hiatal hernia. Unremarkable soft tissues. No acute fracture. CT ABDOMEN AND PELVIS: No pneumatosis or pneumoperitoneum. Unremarkable spleen, pancreas, and adrenal glands. Probable fundal adenomyomatosis of the gallbladder. There are a few cysts of the liver measuring up to approximately 2 cm. Patency of the hepatic and portal veins. Bilateral renal sinus cysts with exophytic cyst of the superior pole left kidney measuring 3.6 cm. Unremarkable urinary bladder. Atherosclerosis of the aorta without aneurysm. No lymphadenopathy. Colonic diverticulosis without acute diverticulitis. There is no bowel obstruction or bowel wall thickening identified. Normal appendix. Tiny fat filled umbilical and suprapubic umbilical hernias. There is no acute fracture identified. IMPRESSION: 1. Large amount of right-sided pulmonary emboli with probable right heart strain. 2. Trace right pleural effusion with bibasilar atelectasis and possible developing right lower lobe pulmonary infarct. 3. Small hiatal hernia. 4. No acute intra-abdominal or intrapelvic abnormality. ACT 112: Negative or not required by law. The above report was generated using voice recognition software. It may contain grammatical, syntax or spelling errors. Electronically signed by: Ty Mazariegos M.D. 03/16/2025 10:14 AM Chest CTA 12/05/25 08:43 CT angio chest PE protocol, CT abd pelvis IV con only CT DOSE: 2202.89 mGy.cm HISTORY: 65 years-old Female with right cp with inspiration, r/o PE. Acute shortness of breath with chest pain TECHNIQUE: Multiple CTA images of the chest were obtained after the intravenous administration of 120 ml Optiray. Coronal and sagittal MIPS were obtained from the axial data set and were submitted for review. CT abdomen and pelvis with IV contrast only also obtained. All measurements were obtained according to NASCET criteria. A dose lowering technique was utilized adhering to the principles of ALARA. COMPARISON: None. FINDINGS: CTA: Heart is mildly enlarged. Moderate coronary artery calcifications. Mild atherosclerosis of the thoracic aorta without aneurysm or dissection. Significant amount of pulmonary emboli are noted in the right main pulmonary artery extending into segmental and subsegmental branches within the right upper and lower lobes. Mild straightening of the intraventricular septum. CT CHEST: Unremarkable thyroid. No pathologically enlarged lymph nodes. Trace right pleural effusion. No pneumothorax. Mild bibasilar atelectasis, right greater than left. Possible developing basilar right lower lobe pulmonary infarct. Central airways are patent. There are no suspicious pulmonary nodule or mass is identified. Distal esophageal wall thickening with small hiatal hernia. Unremarkable soft tissues. No acute fracture. CT ABDOMEN AND PELVIS: No pneumatosis or pneumoperitoneum. Unremarkable spleen, pancreas, and adrenal glands. Probable fundal adenomyomatosis of the gallbladder. There are a few cysts of the liver measuring up to approximately 2 cm. Patency of the hepatic and portal veins. Bilateral renal sinus cysts with exophytic cyst of the superior pole left kidney measuring 3.6 cm. Unremarkable urinary bladder. Atherosclerosis of the aorta without aneurysm. No lymphadenopathy. Colonic diverticulosis without acute diverticulitis. There is no bowel obstruction or bowel wall thickening identified. Normal appendix. Tiny fat filled umbilical and suprapubic umbilical hernias. There is no acute fracture identified. IMPRESSION: 1. Large amount of right-sided pulmonary emboli with probable right heart strain. 2. Trace right pleural effusion with bibasilar atelectasis and possible developing right lower lobe pulmonary infarct. 3. Small hiatal hernia. 4. No acute intra-abdominal or intrapelvic abnormality. ACT 112: Negative or not required by law. The above report was generated using voice recognition software. It may contain grammatical, syntax or spelling errors. Electronically signed by: Ty Mazariegos M.D. 03/16/2025 10:14 AM ECG Additional Comments: ECG on 03/16/2025 at 8:13 AM with normal sinus rhythm, rate 78, no acute ischemic changes Code Status & VTE Plan Code Status Full code VTE Prophylaxis Plan VTE Prophylaxis will be ordered: Yes PG Care Time/CCT Total # of Minutes Spent Total Time Spent with Patient: Total time spent is greater than 50% in coordination of care (as documented) at patient's floor/unit and/or counseling patient: Coding Level of Care Code 72251 INT INP/OBS CARE 3/75MIN Diagnoses Pulmonary embolism and infarction I26.99 CAD (coronary artery disease) I25.10 Hypertension I10
[2025-03-16] MEDS ORDERED: HEPARIN SOD (PORCINE) 1000 UNIT/ML IV ONE (11:10)
[2025-03-16] MEDS: HEPARIN 25000 UNIT/500 ML D5W 25,000 UNITS/500 ML BAG IV SCH (11:52)
[2025-03-16] MEDS: HEPARIN SOD (PORCINE) 1000 UNIT/ML IV ONE (11:52)
[2025-03-16] MEDS: EZETIMIBE 10 MG TAB PO ONE (13:12)
[2025-03-16] MEDS: ASPIRIN 81 MG ECTAB PO STA (13:12)
[2025-03-16] MEDS: ROSUVASTATIN CALCIUM 20 MG TAB PO ONE (13:12)
[2025-03-16] MEDS ORDERED: MoRPHine SULFATE 4 MG/ML 1 ML CARP\\VIAL IV PRN (14:40)
[2025-03-16] MEDS: ACETAMINOPHEN 325 MG TAB PO PRN (14:53)
--- NOTE | 2025-03-16 15:04 | Ultrasound Report ---
BILATERAL LOWER EXTREMITY VENOUS DOPPLER HISTORY: extensive DVT,recent venous ablation COMPARISON STUDY: Duplex venous Doppler study 01/12/2025. FINDINGS: There is normal compressibility, flow, and augmentation within the bilateral lower extremit y deep venous systems. The right greater saphenous vein is not well-visualized. IMPRESSION: No DVT within the right or left lower extremity. ACT 112: Negative or not required by law. Electronically signed by: Ty Mazariegos M.D. 03/16/2025 3:03 PM
[2025-03-16] MEDS: DICLOFENAC SOD 1% GEL 100 GM TUBE EXT PRN (15:06)
[2025-03-16 19:07] LABS: ANTI-Xa, UFH(UnfractionatedHep 0.77 IU/ml (0.3-0.7)
[2025-03-16] MEDS: MELATONIN 3 MG TAB PO PRN (20:19)
[2025-03-16] MEDS: MoRPHine SULFATE 2 MG/ML CARP IV PRN (20:19)
[2025-03-16] MEDS: VALSARTAN 80 MG TAB PO SCH (20:21)
[2025-03-16] MEDS: METOPROLOL SUCC 50MG EXT REL TAB PO SCH (20:21)
--- NOTE | 2025-03-17 00:52 | XCELERA ---
[id number] \\[id number]
[2025-03-17 02:04] LABS: Hematocrit (blood only) 40.4 % (37.0-47.0); Hemoglobin 13.7 g/dL (12.0-16.0); Immature Granulocytes # (auto) 0.02 K/uL (0.01-0.20); Immature Granulocytes % (auto) 0.2 %; Mean Corpuscular Hemoglobin 30.4 pg (25.0-34.0); Mean Corpuscular Volume 89.8 fL (80.0-100.0); Platelet Count 179 K/uL (130-400); RDW Standard Deviation 41.4 fL (36.4-46.3); Red Blood Count 4.50 M/uL (4.20-5.40); White Blood Count 9.61 K/ul (4.8-10.8)
[2025-03-17 02:19] LABS: Anion Gap 7.0 (3-11); Blood Urea Nitrogen 19.0 mg/dl (6-23); Calcium 8.3 mg/dl (8.6-10.3); Carbon Dioxide 23.0 mmol/L (21-32); Chloride 105.0 mmol/L (98-107); Creatinine Clr Calc Pharmacy 87.2 ml/min; Glucose 171.0 mg/dl (70-99(Fasting)); Magnesium 1.9 mg/dl (1.7-2.4); Potassium 3.8 mmol/L (3.5-5.1); Sodium 135.0 mmol/L (136-145)
[2025-03-17 02:48] LABS: ANTI-Xa, UFH(UnfractionatedHep 0.67 IU/ml (0.3-0.7)
[2025-03-17] MEDS: ONDANSETRON INJ 2 MG/ML 2 ML VIAL IV PRN (07:39)
[2025-03-17] MEDS: ASPIRIN 81 MG ECTAB PO SCH (07:46)
[2025-03-17] MEDS: ROSUVASTATIN CALCIUM 20 MG TAB PO SCH (07:47)
[2025-03-17] MEDS: EZETIMIBE 10 MG TAB PO SCH (07:47)
[2025-03-17 08:44] LABS: ANTI-Xa, UFH(UnfractionatedHep 0.62 IU/ml (0.3-0.7)
--- NOTE | 2025-03-17 08:58 | Pulmonary Consultation ---
Date of Consultation March 17, 2025 Assessment & Plan (1) Pulmonary embolism and infarction: (2) Pulmonary hypertension: Plan PE is likely a provoked VTE given her recent venous procedure. Hypercoagulable workup has been sent. Patient is on heparin infusion. On room air. At this time I would recommend transitioning her to oral anticoagulation, would do Eliquis, will need higher dose and then transition to 5 mg. Duration of anticoagulation given that this is likely a provoked clot would be 3 to 6 months. She needs follow-up echocardiogram to assess RV function. May require jacqueline-/postoperative anticoagulation or VTE prophylaxis in the future if she requires procedures given the size and clot burden of this acute PE. Thank you for this consultation. Pulmonary will sign off at this time. Please call directly with any questions. History of Present Illness Reason for Consultation: Pulmonary embolism, right heart strain Requesting Physician: Mike Castro MD Attending Physician: Mike Castro MD History of Present Illness Patient is a 65-year-old female with a past medical history significant for hypertension, coronary artery disease status post STEMI with MANNY to mid LAD, history of LV thrombus, venous reflux, bilateral GSV ablations, migraine disorder, osteoarthritis, obesity and GERD. The patient presented to the emergency department on 03/16/2025 with chest pain and difficulty getting a deep breath that have been progressing over the past 3 days. Denied cough or phlegm production. Denies fevers or chills. Denied lower extremity pain or swelling. The patient was hypertensive, normal heart rate, saturation of 96% on room air. CT angio of the chest was obtained which showed extensive PE on the right, in the right main PA extending into the upper and lower lobes. Also a pulmonary infarct in the right lower lobe. There was concern for RV strain. Echocardiogram shows RVSP 45 to 50 mmHg. The patient was started on heparin infusion on admission. Pulmonary has been consulted for further recommendations. Patient is resting comfortably on room air today. She still has some pleuritic chest pain and is having a very small amount of hemoptysis. She denies any recent travel, immobilization, denies new supplements or medicati ons. She denies any personal or family history of blood clots. Denies any history of malignancy. The patient does state that approximately 2 weeks ago she had a venous procedure performed in her lower extremity. On examination today her lungs are clear, there is no wheezing. She is on room air. Nontachypneic. She is a lifetime non-smoker. She denies any history of respiratory illnesses including asthma. Relevant workup: BNP 97, troponin 3.8 CTA chest 03/16/2025: Large amount of right sided pulmonary emboli with probable right heart strain (in the right main pulmonary artery extending into segmental and subsegmental branches in the right upper and lower lobes), trace right pleural effusion. Right lower lobe pulmonary infarct. Mild bibasilar atelectasis. No suspicious pulmonary nodules. Lung parenchyma otherwise grossly normal appearing. Venous Doppler study 03/16/2025: No evidence of VTE in the lower extremities. Echocardiogram 03/17/2025 normal LV size, concentric LVH with EF of 60 to 65%. Normal RV size and function with mild to moderate pulmonary hypertension with an estimated PASP 45 to 50 mmHg. Aortic valve sclerosis. Allergies Allergy/AdvReac Type Severity Reaction Status Date / Time naproxen Allergy Unknown Hives Verified 12/13/24 16:15 Penicillins Allergy Unknown hives Verified 12/13/24 16:15 sulindac [From Clinoril] Allergy Unknown Hives Verified 12/13/24 16:15 Home Medications Medication Instructions Recorded Confirmed Type diclofenac sodium 1 % topical gel 2 g topical UD PRN Pain 07/11/20 03/16/25 History aspirin 81 mg tablet,delayed 81 mg PO QAM #0 tabs 08/23/23 03/16/25 Rx release ezetimibe 10 mg tablet (Zetia) 0 mg PO DAILY 12/13/24 03/16/25 History metoprolol succinate 25 mg 50 mg PO HS 12/13/24 03/16/25 History tablet,extended release 24 hr rosuvastatin 40 mg tablet 40 mg PO DAILY 12/13/24 03/16/25 History valsartan 80 mg tablet 160 mg PO BID 12/13/24 03/16/25 History pantoprazole 40 mg tablet,delayed 40 mg PO DAILY 03/16/25 03/16/25 History release Patient History Medical History Dyslipidemia CAD (coronary artery disease) NSAID sensitivity Hypertension History of high blood pressure RECENTLY BEEN GOOD, SOMETIMES MELOXICAM WILL DRIVE IT UP PER PT Rapid heart beat METOPROLOL FOR Migraines Arthritis Surgical History History of breast surgery LEFT/HAD BLOCKAGE IN DUCT - MARKER PRESENT H/O dilation and curettage S/P tubal ligation HX S/P tonsillectomy HX S/P laparoscopic procedure HX sling operation for stress incontinence Family History Mother Alzheimer disease Father Parkinson disease Social History Smoking Status: Never smoker Second Hand Exposure: No; Do You Dip or Chew Tobacco: No; Tobacco Cessation Education Requested by Patient: No Hx Alcohol Use: No Hx Substance Use: No Preferred Language: Wolof Communication Ability: Effective Packaging Line Operator Required: No Beliefs That Will Affect Care: None Current Living Situation: Spouse Other Information That Helps Us Care for You: No Feels Safe at Home: Yes Safety Concerns: Feels Safe At This Time Assistive Devices: Cane Assistive Devices Comment: pt reports using cane on uneven surfaces. Review of Systems Review of Systems: A 12 point review of systems was obtained in detail. Negative except as noted in HPI. Physical Exam Physical Exam: Physical examination: General: Well-appearing, well-nourished and not in acute distress. HEENT: Normocephalic, atraumatic. Extraocular movements intact. Sclera are nonicteric. No JVD appreciated. Skin: Warm and dry. No rashes appreciated. No jaundice appreciated. Cardiovascular: Heart is a regular rate and rhythm, no murmurs appreciated on my exam. No significant lower extremity edema. Lungs: Clear bilaterally, no wheezing appreciated. No crackles. Nontachypneic. Resting comfortably on room air. Musculoskeletal: Normal muscle mass and tone. No gross joint deformity abnormalities. No effusions appreciated. Neurologic: Awake and alert, oriented. CN II through XII are grossly intact. Speech is fluent. Nonfocal exam. Psychiatric: Appropriate cooperative during my exam. Results & Data Results & Data Vital Signs (Past 12 Hours) Vital Signs Temp Pulse Pulse Resp BP Pulse Ox O2 Del Method 03/17/25 08:07 78 03/17/25 07:16 37.7 C H 78 19 146/83 H 91 Room Air 03/17/25 03:26 37.6 C H 79 16 124/76 92 Room Air 03/16/25 22:50 36.9 C 85 18 154/89 H 91 Room Air 03/16/25 21:32 80 Laboratory Results No significant elevation in troponin or BNP. Diagnostic Findings I reviewed her CT angio, there is extensive clot burden on the right and a pulmonary infarct in the lower lobe on the right. Lung parenchyma otherwise grossly within normal limits, some mild atelectasis in bibasilar bases. No suspicious pulmonary emboli, no bronchiectasis, airways are patent, no evidence of emphysema. PG Care Time/CCT Total # of Minutes Spent Total Time Spent with Patient: Total time spent is greater than 50% in coordination of care (as documented) at patient's floor/unit and/or counseling patient: [place] [address] IN/OBS CONSULT LVL 4,60M Patient Type New History Detailed Exam Detailed Medical Decision Making Moderate Complexity Diagnoses Pulmonary embolism and infarction I26.99 Pulmonary hypertension I27.20
--- NOTE | 2025-03-17 09:35 | Hospitalist Progress Note ---
Date of Service March 17, 2025 Assessment & Plan (1) Pulmonary embolism and infarction: Plan: - Lower extremity venous Dopplers negative for DVT - Check echocardiogram for right heart strain - Closely monitor heart rate, pulse ox, and blood pressures for decompensation - IV morphine as needed for moderate to severe pain and Tylenol for mild pain - on heparin drip - pulmonary consulted - DOAC transition today (2) CAD (coronary artery disease): Plan: - Continue home valsartan, rosuvastatin, aspirin, Toprol-XL, Zetia - Checking echo (3) Hypertension: Plan: -vasartan Plan This patient is a 65-year-old female with a history of HTN, CAD s/p STEMI with MANNY to mid LAD and LV thrombus, venous reflux with bilateral GSV ablations, migraines, OA, obesity, and GERD, who presents to the ED with right sided chest pain and difficulty getting a deep breath worsening over the last 3 days. She felt congested in the chest but was not really coughing up any sputum. No fevers or chills. Denies any leg swelling or pain. She was found to have extensive pulmonary emboli on the right with possible pulmonary infarct and evidence of right heart strain on CT angiogram of the chest. She was hypertensive but not hypoxic, not tachycardic. Her laboratory values were all normal including a troponin. She had her left venous ablation done in January and it appears she was scheduled for follow-up with vascular medicine on 03/19. She has never had a clot before except for the LV clot related to a STEMI in the past and was on Eliquis at that time. She was started on a heparin drip in the ED and will be admitted for acute pulmonary emboli. Admission and Anticipated Discharge Date Admission Date: March 16, 2025 Subjective No events overnight. Pt still feeling pain upon deep inspiration. Review of Systems Review of Systems: CONST: Negative for fever, body aches and chills. HENT: Negative for neck pain/stiffness, headache, congestion, sore throat, swelling. EYES: Negative for discharge/pain or vision changes. RESP: Negative for cough/hemoptysis and shortness of breath. CV: Negative chest pain, difficulty breathing, palpitations. ABD: Negative pain, nausea, vomiting. : Negative increase frequency, dysuria, blood in urine or stool. MUSC: Negative for muscle aches, edema. SKIN: Negative rash, lesions/sores. NEURO: Negative headache, dizziness, weakness. Physical Exam Physical Exam: GENERAL APPEARANCE NAD, activity normal for age, well developed/ well nourished, no cyanosis, pallor, or diaphoresis. EYES lids/conjunctiva normal. EARS/NOSE/THROAT Mucous membranes moist, nares normal, lips/teeth normal uvula midline without oral pharyngeal erythema, exudate or swelling TMs normal bilaterally. No lymphangitis/lymphedema. HEAD/NECK normocephalic atraumatic, no facial trauma, neck is supple. RESPIRATORY respiratory effort normal, speaks in full sentences, no tripod position, no accessory muscle use. Lungs clear to auscultation without rhonchi, wheezes, rales CARDIAC Regular rate and rhythm, no edema. ABDOMINAL Soft, ND/NT. No evidence of fluid wave. No pulsatile masses on exam, rebound tenderness, Carroll sign or pain over Mcburney's point. MUSCLES/EXTREMITIES No abnormal range of motion, no swelling. SKIN Warm, pink and dry. No rashes, dermatoses, petechiae or lesions. NEUROLOGICAL Speech is clear and appropriate. Normal level of consciousness. Gait and coordination are normal. 5/5 strength in all extremities. PSYCH Normal mood and affect. Judgement/competence is appropriate Results & Data Results & Data Vital Signs (Past 12 Hours) Vital Signs Temp Pulse Pulse Resp BP Pulse Ox O2 Del Method 03/17/25 08:07 78 03/17/25 07:16 37.7 C H 78 19 146/83 H 91 Room Air 03/17/25 03:26 37.6 C H 79 16 124/76 92 Room Air 03/16/25 22:50 36.9 C 85 18 154/89 H 91 Room Air 03/16/25 21:32 80 PG Care Time/CCT Total # of Minutes Spent Total Time Spent with Patient: Total time spent is greater than 50% in coordination of care (as documented) at patient's floor/unit and/or counseling patient: Coding Level of Care Code 58954 SUB INP/OBS CARE 2/35MIN Diagnoses Pulmonary embolism and infarction I26.99 CAD (coronary artery disease) I25.10 Hypertension I10
[2025-03-17] MEDS: POLYETHYLENE (MIRALAX) 17 GM PACK PO PRN (16:14)
[2025-03-17] MEDS: APIXABAN 5 MG TABLET PO SCH (20:38)
[2025-03-17 23:07] VITALS: RESP 18
[2025-03-18 02:19] VITALS: TEMP 99
[2025-03-18 07:10] VITALS: O2SAT 93
--- NOTE | 2025-03-18 09:53 | Discharge Summary ---
Discharge Summary Date of Service March 18, 2025 Principal Dx & Hospital Course #1 = Principal Diagnosis (1) Pulmonary embolism and infarction: -started on eliquis -d/c home (2) CAD (coronary artery disease): - Continue home valsartan, rosuvastatin, aspirin, Toprol-XL, Zetia - Checking echo (3) Hypertension: -vasartan Plan This patient is a 65-year-old female with a history of HTN, CAD s/p STEMI with MANNY to mid LAD and LV thrombus, venous reflux with bilateral GSV ablations, migraines, OA, obesity, and GERD, who presents to the ED with right sided chest pain and difficulty getting a deep breath worsening over the last 3 days. She felt congested in the chest but was not really coughing up any sputum. No fevers or chills. Denies any leg swelling or pain. She was found to have extensive pulmonary emboli on the right with possible pulmonary infarct and evidence of right heart strain on CT angiogram of the chest. She was hypertensive but not hypoxic, not tachycardic. Her laboratory values were all normal including a troponin. She had her left venous ablation done in January and it appears she was scheduled for follow-up with vascular medicine on 03/19. She has never had a clot before except for the LV clot related to a STEMI in the past and was on Eliquis at that time. She was started on a heparin drip in the ED and will be admitted for acute pulmonary emboli. Admission HPI Per Admitting Provider This patient is a 65-year-old female with a history of HTN, CAD s/p STEMI with MANNY to mid LAD and LV thrombus, venous reflux with bilateral GSV ablations, migraines, OA, obesity, and GERD, who presents to the ED with right sided chest pain and difficulty getting a deep breath worsening over the last 3 days. She felt congested in the chest but was not really coughing up any sputum. No fevers or chills. Denies any leg swelling or pain. She was found to have extensive pulmonary emboli on the right with possible pulmonary infarct and evidence of right heart strain on CT angiogram of the chest. She was hypertensive but not hypoxic, not tachycardic. Her laboratory values were all normal including a troponin. She had her left venous ablation done in January and it appears she was scheduled for follow-up with vascular medicine on 03/19. She has never had a clot before except for the LV clot related to a STEMI in the past and was on Eliquis at that time. She was started on a heparin drip in the ED and will be admitted for acute pulmonary emboli. Discharge Exam GENERAL APPEARANCE NAD, activity normal for age, well developed/ well nourished, no cyanosis, pallor, or diaphoresis. EYES lids/conjunctiva normal. EARS/NOSE/THROAT Mucous membranes moist, nares normal, lips/teeth normal uvula midline without oral pharyngeal erythema, exudate or swelling TMs normal bilaterally. No lymphangitis/lymphedema. HEAD/NECK normocephalic atraumatic, no facial trauma, neck is supple. RESPIRATORY respiratory effort normal, speaks in full sentences, no tripod pos ition, no accessory muscle use. Lungs clear to auscultation without rhonchi, wheezes, rales CARDIAC Regular rate and rhythm, no edema. ABDOMINAL Soft, ND/NT. No evidence of fluid wave. No pulsatile masses on exam, rebound tenderness, Carroll sign or pain over Mcburney's point. MUSCLES/EXTREMITIES No abnormal range of motion, no swelling. SKIN Warm, pink and dry. No rashes, dermatoses, petechiae or lesions. NEUROLOGICAL Speech is clear and appropriate. Normal level of consciousness. Gait and coordination are normal. 5/5 strength in all extremities. PSYCH Normal mood and affect. Judgement/competence is appropriate Discharge Plan Discharge Items Patient Disposition: Home - Self-Care Reason For Visit: PE Discharge Diagnosis: PE Condition on Discharge: Fair Activity: Resume your previous activity Non-emergency contact: Primary Care Provider Call non-emergency contact if: you have any medication questions Follow-up/Referrals: Gee Champion [Primary Care Provider] - Diet: Regular Addtl Attending Provider Instructions: Follow up with PMD in 1 week Pending Studies at Discharge: No Stand-Alone Forms: [employer], Smoking Cessation Medications and DC Order Prescriptions: New Eliquis 5 mg tablet 5 mg PO BID Qty: 54 0RF Rx Instructions: take 2 tabs twice per day for 6 days, then take 1 tab twice per day going forward oxycodone-acetaminophen [Percocet] 5-325 mg tablet 1 tab PO Q6H PRN (Reason: pain) Qty: 20 0RF Continued valsartan 80 mg tablet 160 mg PO BID ezetimibe [Zetia] 10 mg tablet 0 mg PO DAILY Patient Comments: 03/15- last filled 09/29 90 day supply #90 rosuvastatin 40 mg tablet 40 mg PO DAILY diclofenac sodium 1 % Gel 2 g TOPICAL UD PRN (Reason: Pain) Patient Comments: 03/16-otc/no fill history unable to verify metoprolol succinate 25 mg tablet extended release 24 hr 50 mg PO HS aspirin 81 mg Tablet,Delayed Release (Dr/Ec) 81 mg PO QAM Qty: 0 0RF Patient Comments: 03/16- otc unable to verify pantoprazole 40 mg tablet,delayed release (DR/EC) 40 mg PO DAILY Discharge Orders: Discharge Order (Routine); Ordered 03/18/25 Ordered By: Mike Castro Admission Data Admit Date/Time: 03/16/25 11:56 Attending Provider: Mike Castro Admit Provider: Corinne Andrews Primary Care Provider: Gee Champion Other Providers: Corinne Andrews; Antoine Card; Radhika Card Hospital Stay Data Consultations 03/16/25 10:54 ED Decision to Admit Stat 03/17/25 07:21 Consult Pulmonology Routine 03/17/25 09:13 Consult Pulmonology Routine Diagnostic Imagining Performed 03/16/25 08:43 CT abd pelvis IV con only Stat CT angio chest PE protocol Stat 03/16/25 11:02 US venous doppler LE BI Stat Pending Results Patient Have Any Pending Studies at Discharge: No Discharge Instructions Given to Patient (Per Discharging Provider) Follow up with PMD in 1 week Total Time Total Time Spent Total Time Spent (In Minutes): 50 Coding Level of Care Code 81916 INP/OBS DISCH >30 MIN Diagnoses Pulmonary embolism and infarction I26.99 CAD (coronary artery disease) I25.10 Hypertension I10
[2025-03-18 09:55] VITALS: BP 163/95; PULSE 76
[2025-03-20 18:12] LABS: Factor 5 Mutation NEGATIVE
== END 2025-03-18 10:33 | disposition home or self-care (01) | DRG 176 ==
LOC: SUATTDRO → ED 07:50 → 2S 11:56 → SUATTDRO 11:56 → 2S 14:15